=== PATIENT | male | born 1930 | race Caucasian/White ===

== ENCOUNTER 2017-02-26 11:00 | Emergency (ER) | payer MEDICARE, OTHER ==
[2017-02-26] MEDS ORDERED: SODIUM CHLORIDE 0.9% 1,000 ML IV ONE (12:24)
[2017-02-26] MEDS ORDERED: SODIUM CHLORIDE 0.9% 500 ML IV ONE (12:24)
--- NOTE | 2017-02-26 12:25 | ED Physician Documentation ---
History of Present Illness - Stated complaint Stated Complaint: VOMITING,HICCUPS - Chief complaint Chief Complaint: Abd Pain - History obtained from History obtained from: Patient - History of Present Illness Timing: Last night Pain level max: 0 Pain level now: 0 Improved by: nothing Worsened by: nothing - Additonal information Additional information: 86 yo M with vomiting last night at 10pm. Then developed hiccoughs. States non- bloody emesis. Ate a hamburger at 1930. Hasn't taken anything for this today. No fevers. Denies abd pain, diarrhea, chest pain, dyspnea. Review of Systems Ten Systems: 10 systems reviewed and negative Constitutional: denies: Fever, Chills Nose: denies: Rhinorrhea / runny nose, Congestion Throat: denies: Sore throat Cardiac: denies: Chest pain / pressure Respiratory: denies: Cough GI: reports: Vomiting. 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) - Present Medications Home Medications: Ambulatory Orders Medication Instructions Recorded Confirmed chlorproMAZINE [Thorazine] 25 mg PO TID PRN #7 tablet 02/26/17 - Allergies Allergies/Adverse Reactions: Allergies Allergy/AdvReac Type Severity Reaction Status Date / Time No Known Drug Allergies Allergy Verified 02/26/17 11:07 - Living Situation Living Situation: reports: With family Living Arrangement: reports: At home - Social History Does the pt smoke?: No Smoking Status: Unknown if ever smoked - Family History Family history: reports: Non contributory PD ED PE NORMAL - Vitals Vital signs reviewed: Yes - General General: Alert and oriented X 3, No acute distress, Well developed/nourished - HEENT HEENT: Moist mucous membranes - Neck Neck: Supple, no meningeal sign - Cardiac Cardiac: RRR, Strong equal pulses - Respiratory Respiratory: No respiratory distress, Clear bilaterally - Abdomen Abdomen: Soft, Non tender - Derm Derm: Warm and dry - Extremities Extremities: No edema, No calf tenderness / cord - Neuro Neuro: Alert and oriented X 3 - Psych Psych: Normal mood, Normal affect Results - Vitals Vitals: Vital Signs - 24 hr 07/11/17 07/11/17 07/11/17 11:07 13:56 14:23 Temperature 36.3 C L Heart Rate 99 95 88 Respiratory 16 18 16 Rate Blood Pressure 154/87 H 172/101 H 184/88 H O2 Saturation 96 97 97 Oxygen O2 Source Room air - EKG (time done) 1255 Rate: Rate (enter#) (96) Rhythm: NSR [place]: Normal Intervals: Normal [place] QRS: Normal Ischemia: Non specific changes (borderline repol abnormality) - Labs Labs: Laboratory Tests 02/26/17 02/26/17 12:48 12:48 WBC 12.4 H RBC 5.03 Hgb 16.1 Hct 47.9 MCV 95.2 H MCH 32.0 H MCHC 33.6 RDW 13.2 Plt Count 139 MPV 8.9 Neut # 10.9 H Lymph # 0.9 L [place] # 0.6 Eos # 0.0 Baso # 0.0 Absolute Nucleated RBC 0.00 Nucleated RBCs 0.0 Sodium 137 Potassium 3.5 Chloride 96 L Carbon Dioxide 30 Anion Gap 11.0 BUN 26 H Creatinine 1.1 Estimated GFR (MDRD) 63 L Glucose 267 H Calcium 9.5 Total Bilirubin 1.0 AST 23 ALT 21 Alkaline Phosphatase 92 Total Protein 7.1 Albumin 4.4 Globulin 2.7 Albumin/Globulin Ratio 1.6 Lipase 21 L PD MEDICAL DECISION MAKING - ED course Complexity details: reviewed results, re-evaluated patient (soft, nt, nd abdomen. no pain.), considered differential, d/w patient ED course: Patient with vomiting last night that has now progressed to hiccoughs today. No acute lab findings. Tolerating PO without difficulty here. Still has hiccoughs, but no evidence of obstruction, impacted food bolus, etc. Has used thorazine in the past for the hiccoughs with good result. will trial on this at home and follow up with PCP. Patient counseled regarding signs and symptoms for which I believe and urgent re-evaluation would be necessary. Patient with good understanding of and agreement to plan and is comfortable going home at this time This document was made in part using voice recognition software. While efforts are made to proofread this document, sound alike and grammatical errors may occur. Departure - Departure Disposition: 01 Home, Self Care Clinical Impression: Hiccoughs Condition: Good Instructions: ED Hiccups Follow-Up: your,doctor in 3 days. [Other] Prescriptions: chlorproMAZINE [Thorazine] 25 mg PO TID PRN #7 tablet PRN Reason: Hiccups Comments: Return if you worsen. This should improve over the next day or two. Your blood pressure was elevated today on check in to the emergency department. This does not mean that you have hypertension, it is a common phenomenon to check into the emergency department and have elevated blood pressure. I recommend that you see your primary care physician within the week to have it rechecked when you're feeling better. Discharge Date/Time: 02/26/17 14:23
[2017-02-26] MEDS ORDERED: LIDOCAINE VISCOUS 2% 15 ML UDC MM STA (12:35)
[2017-02-26] MEDS ORDERED: MAG HYDROX/AL HYDROX/SIMETH 30 ML UDC PO STA (12:35)
[2017-02-26] MEDS ORDERED: ONDANSETRON 4 MG/2 ML VIAL IVP STA (12:35)
[2017-02-26 12:57] LABS: BASOPHILS % (AUTO) 0.4 %; EOSINOPHILS % (AUTO) 0.1 %; HCT - HEMATOCRIT 47.9 % (42.0-52.0); HGB - HEMOGLOBIN 16.1 g/dL (14.0-18.0); LYMPHOCYTES # (AUTO) 0.9 10^3/uL (1.5-3.5); LYMPHOCYTES % (AUTO) 7.6 %; MEAN CORPUSCULAR HGB CONC 33.6 g/dL (32.0-36.0); MEAN CORPUSCULAR VOLUME 95.2 fL (80.0-94.0); MEAN PLATELET VOLUME 8.9 fL (7.4-11.4); MONOCYTES # (AUTO) 0.6 10^3/uL (0.0-1.0); MONOCYTES % (AUTO) 4.5 %; NEUTROPHILS # (AUTO) 10.9 10^3/uL (1.5-6.6); NEUTROPHILS % (AUTO) 87.4 %; RED BLOOD COUNT 5.03 10^6/uL (4.70-6.10); RED CELL DISTRIBUTION WIDTH 13.2 % (12.0-15.0); UNCORRECTED WHITE BLOOD COUNT 12.4 x10^3/uL; WHITE BLOOD COUNT 12.4 x10^3/uL (4.8-10.8)
[2017-02-26 13:11] LABS: CALCIUM 9.5 mg/dL (8.5-10.3); POTASSIUM 3.5 mmol/L (3.5-5.0)
[2017-02-26 13:23] LABS: ALBUMIN/GLOBULIN RATIO 1.6 (1.0-2.2); CREATININE 1.1 mg/dL (0.6-1.2); TOTAL PROTEIN 7.1 g/dL (6.7-8.2)
[2017-02-26] MEDS ORDERED: ONDANSETRON 4 MG/2 ML VIAL ONE (13:23)
[2017-02-26] MEDS ORDERED: LIDOCAINE VISCOUS 2% 15 ML UDC MM ONE (13:24)
[2017-02-26] MEDS ORDERED: MAG HYDROX/AL HYDROX/SIMETH 30 ML UDC ONE (13:24)
[2017-02-26 14:24] VITALS: BP 184/88
== END 2017-02-26 14:23 | disposition home or self-care (01) ==
LOC: ED 11:00
DX: R06.6 Hiccough (principal); I10 Essential (primary) hypertension; K21.9 Gastro-esophageal reflux disease without esophagitis
CPT/HCPCS: 36415; 80053; 83690; 85025; 93005; 96374; 99283; A9270

== ENCOUNTER 2017-06-11 09:00 | Outpatient (CLI) | payer MEDICARE, OTHER ==
[2017-06-11 17:56] LABS: BASOPHILS % (AUTO) 0.7 %; EOSINOPHILS # (AUTO) 0.2 10^3/uL (0.0-0.7); EOSINOPHILS % (AUTO) 2.3 %; HCT - HEMATOCRIT 45.5 % (42.0-52.0); HGB - HEMOGLOBIN 15.2 g/dL (14.0-18.0); LYMPHOCYTES # (AUTO) 2.1 10^3/uL (1.5-3.5); LYMPHOCYTES % (AUTO) 31.8 %; MEAN CORPUSCULAR HEMOGLOBIN 31.6 pg (27.0-31.0); MEAN CORPUSCULAR HGB CONC 33.4 g/dL (32.0-36.0); MEAN CORPUSCULAR VOLUME 94.8 fL (80.0-94.0); MEAN PLATELET VOLUME 9.8 fL (7.4-11.4); MONOCYTES # (AUTO) 0.7 10^3/uL (0.0-1.0); MONOCYTES % (AUTO) 9.6 %; NEUTROPHILS # (AUTO) 3.8 10^3/uL (1.5-6.6); NEUTROPHILS % (AUTO) 55.6 %; NUCLEATED RED BLOOD CELLS AUTO 0.1 /100WBC; RED CELL DISTRIBUTION WIDTH 13.6 % (12.0-15.0); UNCORRECTED WHITE BLOOD COUNT 6.8 x10^3/uL; WHITE BLOOD COUNT 6.8 x10^3/uL (4.8-10.8)
[2017-06-11 18:44] LABS: ALBUMIN/GLOBULIN RATIO 1.8 (1.0-2.2); BILIRUBIN,TOTAL 0.9 mg/dL (0.2-1.0); CALCIUM 8.8 mg/dL (8.5-10.3); POTASSIUM 3.8 mmol/L (3.5-5.0); TOTAL PROTEIN 5.8 g/dL (6.7-8.2)
[2017-06-11 20:02] LABS: HEMOGLOBIN A1C 0.94 g/dL
== END 2017-06-11 09:01 | disposition home or self-care (01) ==
LOC: LAB.F 09:00
DX: E11.9 Type 2 diabetes mellitus without complications (principal); D50.9 Iron deficiency anemia, unspecified
CPT/HCPCS: 36415; 80053; 83036; 85025

== ENCOUNTER 2018-03-15 13:17 | Inpatient (IN) | payer MEDICARE, OTHER ==
[2018-03-15] MEDS ORDERED: ONDANSETRON 4 MG/2 ML VIAL IVP STA (14:27)
--- NOTE | 2018-03-15 14:35 | ED Physician Documentation ---
PD HPI ABD PAIN - Stated complaint Stated Complaint: VOMITING - Chief complaint Chief Complaint: Abd Pain - History obtained from History obtained from: Patient, Family (son) - History of Present Illness Timing - onset: Yesterday (87-year-old gentleman with history of hernia repair who had a bowel obstruction was treated conservatively last year presents with abdominal cramping and nausea with hiccups since yesterday. This is reminiscent prior symptoms of bowel obstruction.) Review of Systems Ten Systems: 10 systems reviewed and negative Constitutional: denies: Fever, Chills GI: reports: Abdominal Pain, Abdominal Swelling, Nausea, Vomiting. 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) - Present Medications Home Medications: Ambulatory Orders Medication Instructions Recorded Confirmed Aspirin 325 mg 03/15/18 Latanoprost 0.005% Ophth Drops 03/15/18 [Xalatan Ophth Drops] Losartan/Hydrochlorothiazide 1 tab 03/15/18 [Losartan-Hctz 100-12.5 mg Tab] Ofloxacin 0.3% Ophth Drops 03/15/18 [Ocuflox 0.3% Ophth Drops] Omeprazole 20 mg 03/15/18 Primidone 50 mg 03/15/18 Simvastatin 20 mg 03/15/18 Terazosin [Hytrin] 2 mg 03/15/18 Zolpidem [Ambien] 5 mg 03/15/18 chlorproMAZINE [Thorazine] 25 mg PO TID PRN #12 tablet 03/15/18 - Allergies Allergies/Adverse Reactions: Allergies Allergy/AdvReac Type Severity Reaction Status Date / Time No Known Drug Allergies Allergy Verified 02/26/17 11:07 - Social History Does the pt smoke?: No Smoking Status: Unknown if ever smoked - Family History Family history: reports: Non contributory PD ED PE NORMAL - Vitals Vital signs reviewed: Yes - General General: Alert and oriented X 3, No acute distress - HEENT HEENT: PERRL, EOMI - Neck Neck: Supple, no meningeal sign, No bony TTP - Cardiac Cardiac: RRR, No murmur - Respiratory Respiratory: Clear bilaterally - Abdomen Abdomen: Soft, Non tender, Other (absent bowel tones) - Extremities Extremities: No edema, No calf tenderness / cord - Neuro Neuro: Alert and oriented X 3, Normal speech - Psych Psych: Normal mood, Normal affect Results - Vitals Vitals: Vital Signs - 24 hr 03/15/18 03/15/18 03/15/18 13:34 15:42 16:37 Temperature 36.7 C 36.3 C L Heart Rate 86 83 86 Respiratory 18 18 18 Rate Blood Pressure 198/108 H 193/101 H 196/90 H O2 Saturation 96 95 94 03/15/18 03/15/18 17:45 19:41 Temperature 36.5 C Heart Rate 89 85 Respiratory 18 18 Rate Blood Pressure 206/90 H 186/90 H O2 Saturation 95 92 Oxygen O2 Source Nasal cannula - Labs Labs: Laboratory Tests 03/15/18 03/15/18 14:30 14:30 WBC 11.9 H RBC 4.83 Hgb 16.0 Hct 48.5 MCV 100.4 H MCH 33.1 H MCHC 32.9 RDW 13.3 Plt Count 139 MPV 9.5 Neut # (Auto) 10.1 H Lymph # (Auto) 1.0 L [place] # (Auto) 0.7 Eos # (Auto) 0.0 Baso # (Auto) 0.0 Absolute Nucleated RBC 0.00 Nucleated RBC % 0.0 Sodium 137 Potassium 3.3 L Chloride 96 L Carbon Dioxide 31 Anion Gap 10.0 BUN 24 H Creatinine 1.0 Estimated GFR (MDRD) 71 L Glucose 240 H Calcium 9.3 Total Bilirubin 1.3 H AST 25 ALT 22 Alkaline Phosphatase 90 Total Protein 7.0 Albumin 4.1 Globulin 2.9 Albumin/Globulin Ratio 1.4 Lipase 25 - Rads (name of study) Acute abd series Radiology: EMP read contemporaneously (no SBO) PD MEDICAL DECISION MAKING - ED course ED course: 87-year-old gentleman with history of conservatively treated bowel obstruction presents with symptoms reminiscent of prior bowel obstruction. He is nontender. He was treated stepwise with medications for nausea and his hiccups here with good effect. The CT scanner went down so we switched to doing an acute abdominal series which was without evidence of a bowel obstruction and then he passed an oral challenge. He remained nontender on reevaluation. Given the circumstances it seems reasonable to send him home on a liquid diet and to advance over the next few days and return if worsening. However just prior to discharge he started vomiting again, the CT scanner came back up but he would not tolerate oral contrast was ordered with IV only. This demonstrated a small bowel obstruction with transition point at the duodenal jejunal border and potential malrotation. Spoke with Dr. Peter Montelongo, the on -call surgeon who recommended NG tube decompression and then repeating the CAT scan with NG tube contrast prior to admission, however he defers to medicine for admission. And I spoke with Dr. Munson for admission shortly after that. - Sepsis Event Vital Signs: Vital Signs - 24 hr 03/15/18 03/15/18 03/15/18 13:34 15:42 16:37 Temperature 36.7 C 36.3 C L Heart Rate 86 83 86 Respiratory 18 18 18 Rate Blood Pressure 198/108 H 193/101 H 196/90 H O2 Saturation 96 95 94 03/15/18 03/15/18 17:45 19:41 Temperature 36.5 C Heart Rate 89 85 Respiratory 18 18 Rate Blood Pressure 206/90 H 186/90 H O2 Saturation 95 92 Oxygen O2 Source Nasal cannula Departure - Departure Disposition: [facility] DC/Xfer Clinical Impression: Hiccoughs, Small bowel obstruction Condition: Stable Record reviewed to determine appropriate education?: Yes
[2018-03-15 14:37] LABS: BASOPHILS % (AUTO) 0.4 %; LYMPHOCYTES % (AUTO) 8.6 %; MEAN CORPUSCULAR HEMOGLOBIN 33.1 pg (27.0-31.0); MEAN CORPUSCULAR HGB CONC 32.9 g/dL (32.0-36.0); MEAN CORPUSCULAR VOLUME 100.4 fL (80.0-94.0); MEAN PLATELET VOLUME 9.5 fL (7.4-11.4); MONOCYTES # (AUTO) 0.7 10^3/uL (0.0-1.0); MONOCYTES % (AUTO) 6.1 %; NEUTROPHILS # (AUTO) 10.1 10^3/uL (1.5-6.6); NEUTROPHILS % (AUTO) 84.9 %; PLT - PLATELET COUNT 139 10^3/uL (130-450); RED BLOOD COUNT 4.83 10^6/uL (4.70-6.10); RED CELL DISTRIBUTION WIDTH 13.3 % (12.0-15.0); WHITE BLOOD COUNT 11.9 x10^3/uL (4.8-10.8)
[2018-03-15 14:50] LABS: ALBUMIN 4.1 g/dL (3.2-5.5); ALBUMIN/GLOBULIN RATIO 1.4 (1.0-2.2); BILIRUBIN,TOTAL 1.3 mg/dL (0.2-1.0); CALCIUM 9.3 mg/dL (8.5-10.3)
[2018-03-15] MEDS ORDERED: METOCLOPRAMIDE 10 MG/2 ML VIAL IVP STA (15:33)
[2018-03-15] MEDS ORDERED: chlorproMAZINE 25 MG/ML AMP IM ONE ×2 (15:57→17:43)
--- NOTE | 2018-03-15 17:25 | XRAY Report ---
Procedure Date: 03/15/2018 Accession Number: [id number] / [id number] Procedure: XR - Abdomen Acute CPT Code: FULL RESULT: EXAM: ABDOMINAL SERIES AND PA CHEST EXAM DATE: 03/15/2018 04:59 PM. CLINICAL HISTORY: Abdomen pain since yesterday with nausea. History of bowel obstruction. COMPARISON: None. TECHNIQUE: 2 views abdomen and 1 view chest. FINDINGS: CHEST: Lungs/Pleura: No focal opacities. No effusion or pneumothorax. Mediastinum: Normal heart size. Moderate hiatal hernia. ABDOMEN: Bowel Gas Pattern: Within normal limits. No dilated loops or abnormal fluid levels. Free Air: None. Other: Left soft tissue fullness. Mild scoliosis and multilevel degenerative lumbar disk disease. IMPRESSION: Left abdominal soft tissue fullness suggesting abdominal situs or soft tissue mass. No bowel obstruction or free air. RADIA
[2018-03-15] MEDS ORDERED: IOPAMIDOL-300 100 ML VIAL ONE (18:25)
[2018-03-15] MEDS ORDERED: IOPAMIDOL-300 100 ML VIAL IVP ONE (18:41)
--- NOTE | 2018-03-15 19:18 | CT Report ---
Procedure Date: 03/15/2018 Accession Number: [id number] / [id number] Procedure: CT - Abdomen/Pelvis W/ CPT Code: FULL RESULT: EXAM: CT ABDOMEN AND PELVIS EXAM DATE: 03/15/2018 06:40 PM. CLINICAL HISTORY: IV only, vomiting, cannot jimena po. History of bowel obstruction. Constipation and vomiting. COMPARISONS: None. TECHNIQUE: Routine helical CT imaging was performed through the abdomen and pelvis. IV contrast: ISOVUE 300 100mL. Enteric contrast: No. Reconstructions: Coronal and sagittal. In accordance with CT protocol optimization, one or more of the following dose reduction techniques were utilized for this exam: automated exposure control, adjustment of mA and/or KV based on patient size, or use of iterative reconstructive technique. FINDINGS: Motion artifact limits evaluation of lung bases and upper abdomen. Lung Bases: Mild basilar atelectasis. Mild cardiac enlargement. Coronary artery calcifications. Moderate-sized hiatal hernia, containing fluid. Liver: Grossly normal (motion artifact). Gallbladder/Bile Ducts: Gallstones without clover acute abnormality or evidence of ductal dilatation. Spleen: Normal. Pancreas: Normal. Adrenal Glands: Normal. Kidneys: Findings consistent with multiple bilateral renal cysts although some are too small to definitively characterize. Largest on the right is 2.7 cm and on the left 6.8 cm. Nonobstructing 5 mm left lower pole calculus. No hydronephrosis, hydroureter or perinephric stranding. Peritoneal Cavity/Bowel: No free fluid, free air or clover adenopathy. Severe colonic diverticulosis without clover diverticulitis. The appendix is well visualized and normal. Dilated stomach and duodenum, primarily with fluid. The duodenum does extend to the midline but then there is some looping or twisting and the duodenal/jejunal junction and the jejunum projects to the right with associated swirling of some vessels consistent with malrotation. Small bowel is decompressed beyond that level. This consistent with obstruction, apparently from malrotation. No clover pneumatosis intestinalis. Pelvic Organs: Dilated bladder. No clover wall thickening, mass or stone. Prostate appears very small Vasculature: Moderate calcification and tortuous aorta, without aneurysm. Bones: Lumbar scoliosis and extensive degenerative disease. No definite acute abnormality. Other: Cutaneous/subcutaneous 1.1 x 2.3 cm soft tissue nodule to the right of the midline of the lower pelvic wall, below the level of the pubic symphysis. IMPRESSION: 1. GI track obstruction near the level of the duodenum-jejunum junction with associated small bowel malrotation, as discussed above. Substantial fluid dilatation of the stomach and duodenum with some fluid distention of a hiatal hernia. Decompression with nasogastric tube recommended. 2. Mild cardiac enlargement. 3. Dilated bladder. 4. Cutaneous/subcutaneous nodule within the lower anterior pelvic wall. Clinical correlation recommended. 5. Cholelithiasis. 6. Additional chronic findings, as above. RADIA The above findings were discussed with Toribio Haro by Dr. Zachary Carreno at 19:15 hrs on 03/15/18.
[2018-03-15] MEDS ORDERED: IOPAMIDOL-300 50 ML VIAL ONE (19:39)
[2018-03-15] MEDS ORDERED: PROMETHAZINE 25 MG/1 ML VIAL IM PRN (19:59)
[2018-03-15] MEDS ORDERED: MORPHINE 2 MG/ML SYRINGE IVP PRN (19:59)
[2018-03-15] MEDS ORDERED: PROCHLORPERAZINE 10 MG/2 ML VIAL IVP PRN (19:59)
[2018-03-15] MEDS ORDERED: ONDANSETRON 4 MG/2 ML VIAL IVP PRN (19:59)
--- NOTE | 2018-03-15 20:08 | HISTORY & PHYSICAL EXAMINATION ---
Chief Complaint - Chief Complaint Chief Complaint: Nausea and vomiting History of Present Illness - Admitted From Admitted From:: Emergency Department - History Obtained From Records Reviewed: Yes History obtained from: Patient Exam Limitations: None - History of Present Illness HPI Comment/Other: Patient is a very pleasant 87-year-old gentleman with a past medical history significant for hypertension, hyperlipidemia, GERD, BPH, borderline diabetes, macular degeneration of the right eye, history of hernia repair in 1973 and history of small bowel obstruction 1 year ago for which patient required 3-4 day hospitalization in [place] who presents to the emergency department with a chief complaint of nausea and vomiting. The patient states that he was in his normal state of health until yesterday afternoon when he states he felt unwell. He states he felt as though he had eaten too much and began having bloating and abdominal distention. The patient states he did not feel nauseated at that time nor was he having abdominal pain but he was not comfortable throughout the day. The patient states that the same symptoms continued this morning and then around 5 PM he became very nauseated and had multiple episodes of emesis. The patient states after that he began having hiccups and he could not control his hiccups. The symptoms were very similar to what he had about a year ago when he was hospitalized with a bowel obstruction. The patient states that his son was visiting from [place] and convinced the patient that he needs to come to the emergency department. The patient denies any abdominal pain, fevers, chills or diarrhea. The patient states that his last bowel movement was more than a day ago. Patient denies any headaches, blurred vision, runny nose, sore throat, nasal congestion, difficulty swallowing, chest pain, shortness of air, orthopnea, PND , increased lower extremity swelling, cough, urinary urgency, urinary frequency , dysuria, joint pain, muscle aches, joint swelling, back pain, neck stiffness, recent unintentional weight loss, hair loss, skin rash, night sweats or any focal neurologic deficits. On presentation to the emergency department the patient was afebrile with heart rate of 86. The patient was very hypertensive with a blood pressure of 198/108 and was otherwise not in any respiratory distress. The patient was having continuous hiccups in the emergency department. The patient underwent routine lab tests which showed a mild leukocytosis of 11.9 and a mild hypokalemia of 3.3 with hypochloremia. The patient also was found to have a blood glucose level of 240. The patient does admit that he has borderline diabetes. The patient initially underwent an acute abdominal series and x-ray showed left abdominal soft tissue fullness suggesting abdominal situs or soft tissue mass. No bowel obstruction or free air was seen. The emergency room physician gave the patient a p.o. challenge which initially he appeared to have passed and was ready to discharge the patient however prior to discharge the patient again began having nausea and had several episodes of emesis. At this point the emergency room physician ordered a CT abdomen/pelvis with IV contrast which revealed a GI tract obstruction near the level of the duodenumjejunum junction with associated small bowel malrotation. The patient had an NG tube placed at that time which was able to suction a large amount of contents from the patient' s stomach. The emergency room physician spoke with the surgeon toy consultant Dr. Quintin Montelongo who asked for a CT abdomen/pelvis with oral contrast placed down the NG tube. The repeat CT scan showed high-grade obstruction near the jejunumduodenum junction with concern for possible volvulus. The surgeon asked that the patient be admitted by the hospitalist service and that he would consult on the patient in the morning. He commented that the patient would likely need laparoscopic procedure in the morning. History - Past Medical History Cardiovascular: reports: Hypertension, High cholesterol Endocrine/Autoimmune: reports: Other (Borderline diabetes) GI: reports: GERD, Hiatal hernia, Other (History of small bowel obstruction) : reports: Benign prostate hypertrophy HEENT: reports: Glaucoma - Past Surgical History General: reports: Hiatal hernia repair /[employer]: reports: Other (prostate) - Family & Social History Family History: Mother: , CVA/TIA, Father: , CAD, ID Living arrangement: At home Living Situation: With spouse/s.o. Social History Notes: Mother in her 80s of stroke and father in his 80s of ID. The patient lives with his and spends most of the year in [place], [place]. 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 They tend to spend most of their alvarez here on [facility]. The patient has 2 sons one who lives in [place] and one that lives in [place]. 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 He is a former smoker and quit smoking 35 years ago. Prior to this he smoked 1 pack per day for 20 years. He does drink a glass of wine every night and denies any illicit drug use. - POLST Patient has POLST: No POLST Status: Full Code Meds/Allgy - Home Medications Home Medications: Ambulatory Orders Medication Instructions Recorded Confirmed Aspirin 325 mg 03/15/18 Latanoprost 0.005% Ophth Drops 03/15/18 [Xalatan Ophth Drops] Losartan/Hydrochlorothiazide 1 tab 03/15/18 [Losartan-Hctz 100-12.5 mg Tab] Ofloxacin 0.3% Ophth Drops 03/15/18 [Ocuflox 0.3% Ophth Drops] Omeprazole 20 mg 03/15/18 Primidone 50 mg 03/15/18 Simvastatin 20 mg 03/15/18 Terazosin [Hytrin] 2 mg 03/15/18 Zolpidem [Ambien] 5 mg 03/15/18 chlorproMAZINE [Thorazine] 25 mg PO TID PRN #12 tablet 03/15/18 - Allergies Allergies/Adverse Reactions: Allergies Allergy/AdvReac Type Severity Reaction Status Date / Time No Known Drug Allergies Allergy Verified 02/26/17 11:07 Review of Systems - Other Findings Other Findings: A comprehensive review of systems was performed the pertinent positives and negatives are stated above in the HPI and the remainder of the review of systems is negative. Exam - Vital Signs Reviewed Vital Signs: Yes Vital Signs: Vital Signs x48h Temp Pulse Resp BP Pulse Ox 03/15/18 19:41 85 18 186/90 H 92 03/15/18 17:45 36.5 C 89 18 206/90 H 95 03/15/18 16:37 86 18 196/90 H 94 03/15/18 15:42 36.3 C L 83 18 193/101 H 95 03/15/18 13:34 36.7 C 86 18 198/108 H 96 - Physical Exam General Appearance: positive: Alert, Moderate distress (Patient continues to have hiccups and nausea, he feels unwell and keeps his eyes closed for much of our encounter) Eyes Bilateral: positive: Normal inspection, PERRL, EOMI, No lid inflammation, Conjunctivae nml, No scleral icterus ENT: positive: ENT inspection nml, Pharynx nml, Dry mucous membranes. negative : Purulent nasal drainage, Pharyngeal erythema, Oral lesions Neck: positive: Nml inspection, Thyroid nml, No JVD, Trachea midline. negative : Thyromegaly, Lymphadenopathy (R), Lymphadenopathy (L), Stiff neck, Carotid bruit, Tracheal deviation Respiratory: positive: Chest non-tender, No respiratory distress, Breath sounds nml. negative: Wheezes, Rales, Rhonchi Cardiovascular: positive: Regular rate & rhythm, No murmur, No gallop Peripheral Pulses: positive: 2+ Abdomen: positive: No organomegaly, Nml bowel sounds, Tenderness (Mild tenderness in the epigastric and upper abdominal area), Abnml bowel sounds ( Bowel sounds are absent), Other (There is some mild distention in the upper abdomen). negative: Guarding, Rebound, Hepatomegaly Back: positive: Nml inspection Skin: positive: Color nml, No rash, Warm, Dry. negative: Cyanosis, Diaphoresis , Pallor, Skin rash Extremities: positive: Non-tender, Full ROM, Nml appearance, No pedal edema Neurologic/Psychiatric: positive: Oriented x3, CN's nml (2-12), Motor nml, Sensation nml, Mood/affect nml Conclusion/Plan - Problem List (1) Small bowel obstruction Conclusion/Plan: Patient presented to the emergency department with nausea and vomiting as well as hiccups. The patient was found to have a small bowel obstruction near the jejunumduodenum junction. The obstruction appears to be high-grade on CT with possibility of a volvulus. Surgery has been consulted. Plan: N.p.o. IV fluids NG tube to suction IV antiemetics as needed IV morphine as needed Surgery consult patient will likely need surgical intervention in the morning (2) Hypokalemia Conclusion/Plan: Patient presents with hypokalemia likely secondary to nausea and vomiting. The patient's potassium is 3.3 on presentation. The patient does appear to be significantly dry due to volume loss. The patient will be given IV potassium overnight and we will monitor potassium daily. (3) Hypertension Conclusion/Plan: The patient has a history of hypertension and blood pressure was significantly elevated in the emergency department with blood pressures ranging from 190-200 systolic. The patient is likely more hypertensive than normal secondary to being unable to take his home medication due to nausea and vomiting and also due to the distress of his current condition. Plan: Patient is n.p.o. therefore he will not be able to use his home medication We will place the patient on IV Vasotec every 6 hours and monitor blood pressure will titrate medication as needed. Qualifiers: Hypertension type: essential hypertension Qualified Code(s): I10 - Essential (primary) hypertension (4) Hyperglycemia Conclusion/Plan: The patient admits that he has a history of borderline diabetes but is not on any treatment at this time. The patient's blood sugar was significantly elevated on presentation at 240. Given how high his blood glucose was on presentation we will place the patient on n.p.o. sliding scale insulin. The patient will also be placed on D5 normal saline with 20 of K for IV fluid. We will check a hemoglobin A1c in the morning. We will monitor blood glucose 4 times daily (5) GERD (gastroesophageal reflux disease) Conclusion/Plan: The patient has history of GERD and is on omeprazole at home. While the patient is hospitalized he will be placed on IV famotidine. (6) Hyperlipemia Conclusion/Plan: Patient has a history of hyperlipidemia and does take statin at home. Patient will resume statin once he is able to take oral medication for now it will be held as he is n.p.o. Qualifiers: Hyperlipidemia type: unspecified Qualified Code(s): E78.5 - Hyperlipidemia , unspecified - Lab Results Lab results reviewed: Yes Fish Bones: 03/15/18 14:30 03/15/18 14:30 Other Lab Results: Laboratory Results WBC 11.9 x10^3/uL (4.8-10.8) H 03/15/18 14:30 RBC 4.83 10^6/uL (4.70-6.10) 03/15/18 14:30 Hgb 16.0 g/dL (14.0-18.0) 03/15/18 14:30 Hct 48.5 % (42.0-52.0) 03/15/18 14:30 MCV 100.4 fL (80.0-94.0) H 03/15/18 14:30 MCH 33.1 pg (27.0-31.0) H 03/15/18 14:30 MCHC 32.9 g/dL (32.0-36.0) 03/15/18 14:30 RDW 13.3 % (12.0-15.0) 03/15/18 14:30 Plt Count 139 10^3/uL (130-450) 03/15/18 14:30 MPV 9.5 fL (7.4-11.4) 03/15/18 14:30 Neut # (Auto) 10.1 10^3/uL (1.5-6.6) H 03/15/18 14:30 Lymph # (Auto) 1.0 10^3/uL (1.5-3.5) L 03/15/18 14:30 [place] # (Auto) 0.7 10^3/uL (0.0-1.0) 03/15/18 14:30 Eos # (Auto) 0.0 10^3/uL (0.0-0.7) 03/15/18 14:30 Baso # (Auto) 0.0 10^3/uL (0.0-0.1) 03/15/18 14:30 Absolute Nucleated RBC 0.00 x10^3/uL 03/15/18 14:30 Nucleated RBC % 0.0 /100WBC 03/15/18 14:30 Sodium 137 mmol/L (135-145) 03/15/18 14:30 Potassium 3.3 mmol/L (3.5-5.0) L 03/15/18 14:30 Chloride 96 mmol/L (101-111) L 03/15/18 14:30 Carbon Dioxide 31 mmol/L (21-32) 03/15/18 14:30 Anion Gap 10.0 (6-13) 03/15/18 14:30 BUN 24 mg/dL (6-20) H 03/15/18 14:30 Creatinine 1.0 mg/dL (0.6-1.2) 03/15/18 14:30 Estimated GFR (MDRD) 71 (>89) L 03/15/18 14:30 Glucose 240 mg/dL (70-100) H 03/15/18 14:30 Calcium 9.3 mg/dL (8.5-10.3) 03/15/18 14:30 Total Bilirubin 1.3 mg/dL (0.2-1.0) H 03/15/18 14:30 AST 25 IU/L (10-42) 03/15/18 14:30 ALT 22 IU/L (10-60) 03/15/18 14:30 Alkaline Phosphatase 90 IU/L (42-121) 03/15/18 14:30 Total Protein 7.0 g/dL (6.7-8.2) 03/15/18 14:30 Albumin 4.1 g/dL (3.2-5.5) 03/15/18 14:30 Globulin 2.9 g/dL (2.1-4.2) 03/15/18 14:30 Albumin/Globulin Ratio 1.4 (1.0-2.2) 03/15/18 14:30 Lipase 25 U/L (22-51) 03/15/18 14:30 - Diagnostic Imaging Results Diagnostic Imaging Results: positive: Final report reviewed Diagnostic Imaging Results Comments: Acute abdominal series Impression: Left abdominal soft tissue fullness suggesting abdominal situs or soft tissue mass. No bowel obstruction or free air CT abdomen/pelvis Impression: 1. GI tract obstruction near the level of the duodenumjejunum junction with associated small bowel malrotation, as discussed above. Substantial fluid dilatation of the stomach and duodenum with some fluid distention of a hiatal hernia. Decompression with nasogastric tube recommended. 2. Mild cardiac enlargement. 3. Dilated bladder. 4. Cutaneous/subcutaneous nodule within the lower anterior pelvic wall. Clinical correlation recommended. 5. Cholelithiasis 6. Additional chronic findings CT abdomen/pelvis with oral contrast Impression: 1. High-grade obstruction near the jejunumduodenal junction. Differential includes an internal hernia or adhesions. Swirling of the vessels raises possibility of a volvulus possibly secondary to malrotation. 2. Diverticulosis. No acute inflammation. No obstruction of the large bowel. 3. Cholelithiasis. Core Measures - Anticipated LOS I expect patient to be DC'd or transferred within 96 hours.: Yes - DVT/VTE - Prophylaxis VTE/DVT Prophylaxis med ordered at admit?: Yes
[2018-03-15] MEDS ORDERED: IOPAMIDOL-300 50 ML VIAL PO ONE (21:00)
[2018-03-15] MEDS: D5NS W/20 MEQ KCL 1,000 ML IV SCH (22:20)
[2018-03-15] MEDS: FAMOTIDINE 20 MG/50 ML 50 ML IV SCH (22:21)
--- NOTE | 2018-03-15 22:40 | CT Report ---
Procedure Date: 03/15/2018 Accession Number: [id number] / [id number] Procedure: CT - Abdomen/Pelvis W/O CPT Code: FULL RESULT: EXAM: CT ABDOMEN AND PELVIS EXAM DATE: 03/15/2018 09:46 PM. CLINICAL HISTORY: Per surgeon, rpt with NGT contrast. COMPARISONS: 03/15/2018. TECHNIQUE: Routine helical CT imaging was performed through the abdomen and pelvis. IV contrast: None. Enteric contrast: No. Reconstructions: Coronal and sagittal. In accordance with CT protocol optimization, one or more of the following dose reduction techniques were utilized for this exam: automated exposure control, adjustment of mA and/or KV based on patient size, or use of iterative reconstructive technique. FINDINGS: Lung Bases: Bibasilar opacities and trace left pleural effusion. Moderate paraesophageal hernia. Nasogastric tube is coiled in the lower esophagus. Contrast is present in the paraesophageal hernia and lower esophagus. No pleural or pericardial effusions. Coronary artery calcifications are noted. No significant cardiac enlargement.. Liver: No solid mass or intrahepatic bile duct dilation. Potential exophytic cystic structure adjacent to the posterior right liver, image 26. Gallbladder/Bile Ducts: Multiple gallstones. No gallbladder wall thickening or pericholecystic fluid or common bile duct dilation noted. Spleen: Normal. Pancreas: Normal. Adrenal Glands: Normal. Kidneys: Multiple bilateral renal cysts. Contrast is present in the nondilated renal collecting system. No solid renal mass. Peritoneal Cavity/Bowel: No ascites, pneumoperitoneum, portal venous gas, adenopathy or mass is noted. Oral contrast is noted in the markedly distended stomach and duodenum to the duodenal-jejunal junction. No contrast is seen beyond the duodenum. Persistent high-grade obstruction with swirling of the vessels is noted at the junction of the duodenum and jejunum. As before, diffuse colonic diverticula without large bowel inflammation is noted. No dilated large bowel concerning for obstruction. Pelvic Organs: Moderately distended bladder with multiple bladder diverticula. Possible TURP defect. Mild enlargement of the prostate gland. No pelvic mass or adenopathy. Vasculature: Diffuse atheromatous plaques are present in the abdominal aorta and branch vessels. No aneurysm. Normal IVC. Bones: No osteoblastic or osteolytic lesions are noted. Multilevel degenerative disk disease and facet arthropathy is noted. Other: Persistent subcutaneous nodule in the anterior midline pelvis at the level of the pubic symphysis. IMPRESSION: 1. High-grade obstruction near the jejunum-duodenal junction. Differential includes an internal hernia or adhesions. Swirling of the vessels raises possibility of a volvulus possibly secondary to malrotation. 2. Diverticulosis. No acute inflammation. No obstruction of the large bowel. 3. Cholelithiasis. RADIA
[2018-03-16] MEDS: SODIUM CHLORIDE FLUSH 0.9% 10 ML SYRINGE IVP SCH ×4 (00:36→18:55)
[2018-03-16] MEDS: ENALAPRILAT 1.25 MG/ML VIAL IVP SCH ×4 (00:50→18:55)
[2018-03-16] MEDS: INSULIN REGULAR HUMAN 100 UNIT/1 ML 10 ML MDV SUBQ SCH ×4 (00:51→18:55)
--- NOTE | 2018-03-16 03:14 | CONSULTATION NOTE ---
DATE OF SERVICE: 03/16/2018 Physician: Salvador Montelongo MD REASON FOR ADMISSION: Nausea and vomiting. HISTORY OF PRESENT ILLNESS: Patient is an 87-year-old male who presents with not feeling well, abdominal distention starting the day of admission, being 03/15/2018. He has had this happen twice in the past in which he was hospitalized and an NG tube placed with it resolving. His doctor said that this could happen again but they wanted to be conservative , which is ridiculous, as he is now needing emergency evaluation again. He has had flatus. He has had nausea and vomiting. A CT scan of the abdomen and pelvis shows a probable internal hernia being present. PAST MEDICAL HISTORY 1. Hypertension. 2. Hypercholesterolemia. 3. Gastroesophageal reflux disease. 4. Hiatal hernia. 5. BPH. 6. Glaucoma. PAST SURGICAL HISTORY: Inguinal hernia repair. MEDICATIONS 1. Xalatan ophthalmic drops. 2. Losartan/hydrochlorothiazide. 3. Omeprazole. 4. Primidone. 5. Simvastatin. 6. Terazosin. 7. Ambien. 8. Thorazine. ALLERGIES TO MEDICATIONS: NONE. HABITS: Patient denies any smoking, alcohol or drug use. SOCIAL HISTORY: The patient is . FAMILY HISTORY: Noncontributory. REVIEW OF SYSTEMS GASTROINTESTINAL: Abdominal pain, nausea and vomiting. Gastroesophageal reflux. GENITOURINARY: BPH. A 12-point review of systems was obtained, with pertinent positives discussed and all others being negative. PHYSICAL EXAMINATION GENERAL: Patient is lying in bed. He is tired but is able to answer questions. VITAL SIGNS: Temperature is 36.7, heart rate 86, respirations 18, blood pressure is 196/90. HEENT: Eyes nonicteric. NECK: No lymphadenopathy. HEART: Regular. LUNGS: Clear. ABDOMEN: Soft, nondistended, nontender. No obvious hernias. EXTREMITIES: No edema or cyanosis. NEUROLOGICAL: Patient appears to be neurologically intact without any deficits. PSYCHOLOGICAL: Patient is coherent, cooperative, and appears to answer questions fully. DIAGNOSTIC DATA CT scan of the abdomen and pelvis: See history of present illness. White blood cell count of 12, hemoglobin 16, MCV of 100. Potassium 3.3, glucose 240, total bilirubin 1.3. ASSESSMENT 1. Abdominal pain, nausea and vomiting. This is his third occurrence. CT scan shows a likely internal hernia being present. He has a nasogastric tube that is in his hiatal hernia, not in the full stomach, along with the stomach being distended. He has had bilious fluid out through his nasogastric tube. I recommend that we adjust the nasogastric tube in order to adequately decompress the stomach; once this has been completed, then performing diagnostic laparoscopy, possible laparotomy, possible bowel resection, possible repair of abdominal hernia. The risks and possible complications of the procedure have been explained to him. He accepts the risks and would like to proceed with the procedure. 2. Hypokalemia. This is being corrected. 3. Hypertension. Internal medicine is following. Patient will have his blood pressure under better control for the procedure. 4. Hiatal hernia. We will try and adjust his nasogastric tube under fluoroscopy. PLAN 1. NPO. 2. IV fluids. 3. NG tube adjustment. 4. Preoperative IV antibiotics. 5. Diagnostic laparoscopy, possible bowel resection, possible repair of internal hernia, possible laparotomy. TD: 03/16/2018 01:10 NEREIDA
[2018-03-16 05:44] LABS: BASOPHILS % (AUTO) 0.2 %; HGB - HEMOGLOBIN 15.1 g/dL (14.0-18.0); LYMPHOCYTES # (AUTO) 1.3 10^3/uL (1.5-3.5); LYMPHOCYTES % (AUTO) 9.4 %; MEAN CORPUSCULAR HEMOGLOBIN 33.4 pg (27.0-31.0); MEAN CORPUSCULAR HGB CONC 33.6 g/dL (32.0-36.0); MEAN CORPUSCULAR VOLUME 99.2 fL (80.0-94.0); MEAN PLATELET VOLUME 9.4 fL (7.4-11.4); MONOCYTES # (AUTO) 1.1 10^3/uL (0.0-1.0); MONOCYTES % (AUTO) 8.2 %; NEUTROPHILS # (AUTO) 11.1 10^3/uL (1.5-6.6); NEUTROPHILS % (AUTO) 82.2 %; PLT - PLATELET COUNT 123 10^3/uL (130-450); RED BLOOD COUNT 4.53 10^6/uL (4.70-6.10); RED CELL DISTRIBUTION WIDTH 13.4 % (12.0-15.0); WHITE BLOOD COUNT 13.5 x10^3/uL (4.8-10.8)
[2018-03-16 05:55] LABS: ALBUMIN 3.5 g/dL (3.2-5.5); ALBUMIN/GLOBULIN RATIO 1.4 (1.0-2.2); BILIRUBIN,TOTAL 1.3 mg/dL (0.2-1.0); CALCIUM 8.7 mg/dL (8.5-10.3); CREATININE 0.9 mg/dL (0.6-1.2); MAGNESIUM 1.9 mg/dL (1.7-2.8); PHOSPHORUS 2.4 mg/dL (2.5-4.6)
[2018-03-16 06:20] LABS: HEMOGLOBIN A1C 0.91 g/dL; HEMOGLOBIN A1C % 7.4 % (4.6-6.2)
[2018-03-16] MEDS ORDERED: BUPIVACAINE 0.25%-EPI 1:200000 PF 30 ML VIAL ONE (07:28)
[2018-03-16] MEDS ORDERED: cefOXitin 2 GM in SODIUM CHLORIDE 0.9% MINIBAG 100 ML IV SCH (07:30)
[2018-03-16] MEDS: FAMOTIDINE 20 MG/50 ML 50 ML IV SCH ×2 (07:48→21:06)
--- NOTE | 2018-03-16 08:07 | ANESTHESIA ---
Pre-Anesthesia VS, & Labs - Diagnosis possible bowel obstruction - Procedure Diagnostic Laparoscopy Vital Signs: Temp Pulse Resp BP Pulse Ox 36.4 C L 76 18 136/73 H 92 03/16/18 07:46 03/16/18 07:46 03/16/18 07:46 03/16/18 07:46 03/16/18 07:46 Height 6 ft Weight (kg) 95.5 kg Body Mass Index 28.5 - NPO >8 hours - Is Patient ?: No - Lab Results Lab results reviewed: Yes Fish Bones: 03/16/18 05:25 03/16/18 05:25 Home Medications and Allergies Home Medications: Ambulatory Orders Medication Instructions Recorded Confirmed Aspirin 325 mg 03/15/18 Latanoprost 0.005% Ophth Drops 03/15/18 [Xalatan Ophth Drops] Losartan/Hydrochlorothiazide 1 tab 03/15/18 [Losartan-Hctz 100-12.5 mg Tab] Ofloxacin 0.3% Ophth Drops 03/15/18 [Ocuflox 0.3% Ophth Drops] Omeprazole 20 mg 03/15/18 Primidone 50 mg 03/15/18 Simvastatin 20 mg 03/15/18 Terazosin [Hytrin] 2 mg 03/15/18 Zolpidem [Ambien] 5 mg 03/15/18 chlorproMAZINE [Thorazine] 25 mg PO TID PRN #12 tablet 03/15/18 Allergies/Adverse Reactions: Allergies Allergy/AdvReac Type Severity Reaction Status Date / Time No Known Drug Allergies Allergy Verified 02/26/17 11:07 Anes History & Medical History - Anesthetic History Anesthesia Complications: reports: No previous complications - Airway/Dental Dental: WNL Neck Mobility: Reduced Thyromental Distance: 4-6 cm - Medical History Cardiovascular: reports: Hypertension, High cholesterol Gastrointestinal: reports: GERD, Hiatal hernia, Other (History of small bowel obstruction) Urinary: reports: Benign prostate hypertrophy Endocrine/Autoimmune: reports: Other (Borderline diabetes) Smoking Status: Unknown if ever smoked - Surgical History General: Hiatal hernia repair Gynecologic: Other (prostate) Results - EKG Results EKG Comparison: Reviewed EKG Exam General: Alert, Oriented x3 Abdomen: Other (reduced, ngt in place) Mental/Cognitive Status: Alert/Oriented X3 Plan Anesthesia Type: General Consent for Operative Procedure(s) Verified and Reviewed: Yes Code Status: Attempt Resuscitation ASA classification: 2-Mild systemic disease Is this case an emergency?: Yes
[2018-03-16] MEDS: D5NS W/20 MEQ KCL 1,000 ML IV SCH ×2 (08:50→14:46)
[2018-03-16] MEDS ORDERED: LACTATED RINGERS 1,000 ML IV ONE ×2 (08:55→11:15)
[2018-03-16] MEDS ORDERED: ENOXAPARIN 40 MG/0.4 ML SYRINGE SUBQ SCH (09:00)
[2018-03-16] MEDS ORDERED: POLYETHYLENE GLYCOL 3350 17 GM PACKET PO SCH (09:00)
[2018-03-16] MEDS ORDERED: IOTHALAMATE MEGLUMINE 50 ML VIAL ONE (09:41)
[2018-03-16] MEDS ORDERED: BUPIVACAINE 0.25%-EPI 1:200000 PF 30 ML VIAL SUBQ ONE ×2 (09:48)
[2018-03-16] MEDS ORDERED: IOTHALAMATE MEGLUMINE 50 ML VIAL IVP ONE (09:48)
[2018-03-16] MEDS ORDERED: GLYCOPYRROLATE 1 MG/5 ML VIAL IVP ONE (10:00)
[2018-03-16] MEDS ORDERED: PROPOFOL 200 MG/20 ML VIAL IVP ONE (10:00)
[2018-03-16] MEDS ORDERED: ACETAMINOPHEN 1,000 MG/100 ML 100 ML IV ONE (10:00)
[2018-03-16] MEDS ORDERED: ONDANSETRON 4 MG/2 ML VIAL IVP ONE (10:00)
[2018-03-16] MEDS ORDERED: HYDROmorphone 1 MG/ML SYRINGE IVP ONE (10:00)
[2018-03-16] MEDS ORDERED: LIDOCAINE-MPF 2% 5 ML VIAL IM ONE (10:00)
[2018-03-16] MEDS ORDERED: ROCURONIUM 50 MG/5 ML VIAL IVP ONE (10:00)
[2018-03-16] MEDS ORDERED: NEOSTIGMINE 1 MG/1 ML 10 ML MDV IVP ONE (10:00)
[2018-03-16] MEDS ORDERED: fentaNYL 100 MCG/2 ML VIAL IVP ONE (10:00)
[2018-03-16] MEDS ORDERED: INSULIN REGULAR HUMAN 100 UNIT/1 ML 10 ML MDV ONE (10:44)
[2018-03-16] MEDS ORDERED: HYDROmorphone 1 MG/ML CARPUJECT IVP PRN (11:49)
[2018-03-16] MEDS ORDERED: HYDROmorphone 0.5 MG/0.5 ML SYRINGE IVP PRN (11:49)
[2018-03-16] MEDS: cefOXitin 1 GM in SODIUM CHLORIDE 0.9% MINIBAG 100 ML IV SCH ×2 (13:59→19:42)
--- NOTE | 2018-03-16 14:40 | PROVIDER PROGRESS NOTE ---
Subjective - Prog Note Date Prog Note Date: 03/16/18 Prog Note Time: 14:46 - Subjective Subjective: I have not seen him before and after surgery. Right now he is a little groggy but completely alert and appropriate. Main complaint is a dry mouth. Feels that the pain is controlled. Denies any chest pain, shortness of breath. Current Medications - Current Medications Current Medications: Active Medications Enalaprilat (Vasotec Inj) 1.25 mg IVP Q6HR [facility] Last Admin: 03/16/18 13:59 Dose: Not Given Hydromorphone HCl (Dilaudid Inj Carp) 1 mg IVP Q2H PRN PRN Reason: PAIN Hydromorphone HCl (Dilaudid Inj Syringe) 0.5 mg IVP Q2H PRN PRN Reason: PAIN Potassium Chloride/Dextrose/Sod Cl () 1,000 mls @ 100 mls/hr IV .Q10H [facility] Last Admin: 03/16/18 14:46 Dose: 100 mls/hr Famotidine (Pepcid 20 Mg/50 Ml) 50 mls @ 100 mls/hr IV BID [facility] Last Infusion: 03/16/18 08:18 Dose: Infused Cefoxitin Sodium 1 gm/ Sodium (Chloride) 100 mls @ 200 mls/hr IV Q8H [facility] Stop: 03/17/18 04:29 Last Admin: 03/16/18 13:59 Dose: Not Given Insulin Human Regular (Novolin R) 1 - 5 unit SUBQ Q6HR [facility] PRN Reason: Protocol Last Admin: 03/16/18 13:59 Dose: Not Given Morphine Sulfate (Morphine) 2 mg IVP Q2H PRN PRN Reason: Pain 8 to 10 Ondansetron HCl (Zofran Inj) 4 mg IVP Q6HR PRN PRN Reason: Nausea / Vomiting Polyethylene Glycol (Miralax) 17 gm PO DAILY [facility] Last Admin: 03/16/18 07:25 Dose: Not Given Prochlorperazine Edisylate (Compazine Inj) 10 mg IVP Q6HR PRN PRN Reason: Nausea / Vomiting Promethazine HCl (Phenergan Inj) 25 mg IM Q6HR PRN PRN Reason: Nausea / Vomiting Sodium Chloride (Normal Saline Flush 0.9%) 10 ml IVP PRN PRN PRN Reason: NEEDED PER PROVIDER ORDERS Sodium Chloride (Normal Saline Flush 0.9%) 10 ml IVP 0100,0900,1700 [facility] Last Admin: 03/16/18 07:49 Dose: Not Given Aspirin 325 mg 03/15/18 Latanoprost 0.005% Ophth Drops [Xalatan Ophth Drops] 03/15/18 Losartan/Hydrochlorothiazide [Losartan-Hctz 100-12.5 mg Tab] 1 tab 03/15/18 Ofloxacin 0.3% Ophth Drops [Ocuflox 0.3% Ophth Drops] 03/15/18 Omeprazole 20 mg 03/15/18 Primidone 50 mg 03/15/18 Simvastatin 20 mg 03/15/18 Terazosin [Hytrin] 2 mg 03/15/18 Zolpidem [Ambien] 5 mg 03/15/18 Objective - Vital Signs/Intake & Output Reviewed Vital Signs: Yes Vital Signs: Vital Signs x48h Temp Pulse Resp BP BP Pulse Ox 03/16/18 13:54 36.9 C 80 18 147/57 H 96 03/16/18 13:30 72 16 139/60 H 96 03/16/18 13:02 36.9 C 72 18 123/65 96 03/16/18 12:45 36.9 C 70 16 139/54 H 97 03/16/18 12:39 37 C 16 127/78 96 03/16/18 12:34 37 C 16 127/52 L 96 03/16/18 12:30 37 C 16 127/54 L 95 03/16/18 12:27 37 C 16 141/43 H 96 03/16/18 12:19 37 C 16 94 03/16/18 12:14 37 C 16 129/50 L 95 03/16/18 12:11 36.8 C 16 123/52 L 96 03/16/18 12:05 36.9 C 16 98 03/16/18 11:58 36.9 C 16 140/57 H 97 03/16/18 11:53 36.9 C 16 140/61 H 97 03/16/18 07:46 36.4 C L 76 18 136/73 H 92 03/16/18 07:15 79 151/77 H 03/16/18 07:00 76 128/72 03/16/18 06:45 87 132/69 H 03/16/18 06:41 87 120/99 H Intake & Output: Intake & Output 03/13/18 03/14/18 03/15/18 03/16/18 23:59 23:59 23:59 23:59 Intake Total 61.667 1066.333 Output Total 1300 2400 Balance -1238.333 -1333.667 - Objective General Appearance: positive: No acute distress, Alert, Other (Hand, tall, elderly man who looks stated age, sleepy) Eyes Bilateral: positive: PERRL, EOMI ENT: positive: Dry mucous membranes Neck: positive: No JVD. negative: Stiff neck, Carotid bruit Respiratory: positive: Chest non-tender, Other (Breath sounds diminished at bases and right now he is breathing shallowly). negative: Wheezes, Rales, Rhonchi Cardiovascular: positive: Regular rate & rhythm. negative: Gallop/S4, Friction rub Abdomen: positive: Other (No bowel sounds, nondistended, tender only at incision sites) Skin: positive: Warm, Dry Extremities: positive: Non-tender, No pedal edema Neurologic/Psychiatric: positive: Oriented x3, CN's nml (2-12), Motor nml - Lab Results Fish Bones: 03/16/18 05:25 03/16/18 05:25 Other Labs: Lab Results x24hrs 03/16/18 03/16/18 03/16/18 Range/Units 13:27 12:18 11:09 WBC (4.8-10.8) x10^3/uL RBC (4.70-6.10) 10^6/uL Hgb (14.0-18.0) g/dL Hct (42.0-52.0) % MCV (80.0-94.0) fL MCH (27.0-31.0) pg MCHC (32.0-36.0) g/dL RDW (12.0-15.0) % Plt Count (130-450) 10^3/uL MPV (7.4-11.4) fL Neut # (Auto) (1.5-6.6) 10^3/uL Lymph # (Auto) (1.5-3.5) 10^3/uL [place] # (Auto) (0.0-1.0) 10^3/uL Eos # (Auto) (0.0-0.7) 10^3/uL Baso # (Auto) (0.0-0.1) 10^3/uL Absolute Nucleated RBC x10^3/uL Nucleated RBC % /100WBC Sodium (135-145) mmol/L Potassium (3.5-5.0) mmol/L Chloride (101-111) mmol/L Carbon Dioxide (21-32) mmol/L Anion Gap (6-13) BUN (6-20) mg/dL Creatinine (0.6-1.2) mg/dL Estimated GFR (MDRD) (>89) Glucose (70-100) mg/dL POC Whole Bld Glucose 87 75 141 H (70 - 100) mg/dL Glycated Hemoglobin (4.6-6.2) % Estim Average Glucose (70-100) Lactic Acid (0.5-2.2) mmol/L Calcium (8.5-10.3) mg/dL Phosphorus (2.5-4.6) mg/dL Magnesium (1.7-2.8) mg/dL Total Bilirubin (0.2-1.0) mg/dL AST (10-42) IU/L ALT (10-60) IU/L Alkaline Phosphatase (42-121) IU/L Total Protein (6.7-8.2) g/dL Albumin (3.2-5.5) g/dL Globulin (2.1-4.2) g/dL Albumin/Globulin Ratio (1.0-2.2) 03/16/18 03/16/18 03/16/18 Range/Units 10:13 06:14 05:25 WBC (4.8-10.8) x10^3/uL RBC (4.70-6.10) 10^6/uL Hgb (14.0-18.0) g/dL Hct (42.0-52.0) % MCV (80.0-94.0) fL MCH (27.0-31.0) pg MCHC (32.0-36.0) g/dL RDW (12.0-15.0) % Plt Count (130-450) 10^3/uL MPV (7.4-11.4) fL Neut # (Auto) (1.5-6.6) 10^3/uL Lymph # (Auto) (1.5-3.5) 10^3/uL [place] # (Auto) (0.0-1.0) 10^3/uL Eos # (Auto) (0.0-0.7) 10^3/uL Baso # (Auto) (0.0-0.1) 10^3/uL Absolute Nucleated RBC x10^3/uL Nucleated RBC % /100WBC Sodium (135-145) mmol/L Potassium (3.5-5.0) mmol/L Chloride (101-111) mmol/L Carbon Dioxide (21-32) mmol/L Anion Gap (6-13) BUN (6-20) mg/dL Creatinine (0.6-1.2) mg/dL Estimated GFR (MDRD) (>89) Glucose (70-100) mg/dL POC Whole Bld Glucose 228 H 276 H (70 - 100) mg/dL Glycated Hemoglobin 7.4 H (4.6-6.2) % Estim Average Glucose 166 H (70-100) Lactic Acid (0.5-2.2) mmol/L Calcium (8.5-10.3) mg/dL Phosphorus (2.5-4.6) mg/dL Magnesium (1.7-2.8) mg/dL Total Bilirubin (0.2-1.0) mg/dL AST (10-42) IU/L ALT (10-60) IU/L Alkaline Phosphatase (42-121) IU/L Total Protein (6.7-8.2) g/dL Albumin (3.2-5.5) g/dL Globulin (2.1-4.2) g/dL Albumin/Globulin Ratio (1.0-2.2) 03/16/18 03/16/18 03/16/18 Range/Units 05:25 05:25 05:25 WBC 13.5 H (4.8-10.8) x10^3/uL RBC 4.53 L (4.70-6.10) 10^6/uL Hgb 15.1 (14.0-18.0) g/dL Hct 44.9 (42.0-52.0) % MCV 99.2 H (80.0-94.0) fL MCH 33.4 H (27.0-31.0) pg MCHC 33.6 (32.0-36.0) g/dL RDW 13.4 (12.0-15.0) % Plt Count 123 L (130-450) 10^3/uL MPV 9.4 (7.4-11.4) fL Neut # (Auto) 11.1 H (1.5-6.6) 10^3/uL Lymph # (Auto) 1.3 L (1.5-3.5) 10^3/uL [place] # (Auto) 1.1 H (0.0-1.0) 10^3/uL Eos # (Auto) 0.0 (0.0-0.7) 10^3/uL Baso # (Auto) 0.0 (0.0-0.1) 10^3/uL Absolute Nucleated RBC 0.02 x10^3/uL Nucleated RBC % 0.2 /100WBC Sodium 135 (135-145) mmol/L Potassium 3.5 (3.5-5.0) mmol/L Chloride 98 L (101-111) mmol/L Carbon Dioxide 30 (21-32) mmol/L Anion Gap 7.0 (6-13) BUN 28 H (6-20) mg/dL Creatinine 0.9 (0.6-1.2) mg/dL Estimated GFR (MDRD) 80 L (>89) Glucose 307 H (70-100) mg/dL POC Whole Bld Glucose (70 - 100) mg/dL Glycated Hemoglobin (4.6-6.2) % Estim Average Glucose (70-100) Lactic Acid 1.6 (0.5-2.2) mmol/L Calcium 8.7 (8.5-10.3) mg/dL Phosphorus 2.4 L (2.5-4.6) mg/dL Magnesium 1.9 (1.7-2.8) mg/dL Total Bilirubin 1.3 H (0.2-1.0) mg/dL AST 28 (10-42) IU/L ALT 19 (10-60) IU/L Alkaline Phosphatase 68 (42-121) IU/L Total Protein 6.0 L (6.7-8.2) g/dL Albumin 3.5 (3.2-5.5) g/dL Globulin 2.5 (2.1-4.2) g/dL Albumin/Globulin Ratio 1.4 (1.0-2.2) 03/16/18 Range/Units 00:34 WBC (4.8-10.8) x10^3/uL RBC (4.70-6.10) 10^6/uL Hgb (14.0-18.0) g/dL Hct (42.0-52.0) % MCV (80.0-94.0) fL MCH (27.0-31.0) pg MCHC (32.0-36.0) g/dL RDW (12.0-15.0) % Plt Count (130-450) 10^3/uL MPV (7.4-11.4) fL Neut # (Auto) (1.5-6.6) 10^3/uL Lymph # (Auto) (1.5-3.5) 10^3/uL [place] # (Auto) (0.0-1.0) 10^3/uL Eos # (Auto) (0.0-0.7) 10^3/uL Baso # (Auto) (0.0-0.1) 10^3/uL Absolute Nucleated RBC x10^3/uL Nucleated RBC % /100WBC Sodium (135-145) mmol/L Potassium (3.5-5.0) mmol/L Chloride (101-111) mmol/L Carbon Dioxide (21-32) mmol/L Anion Gap (6-13) BUN (6-20) mg/dL Creatinine (0.6-1.2) mg/dL Estimated GFR (MDRD) (>89) Glucose (70-100) mg/dL POC Whole Bld Glucose 338 H (70 - 100) mg/dL Glycated Hemoglobin (4.6-6.2) % Estim Average Glucose (70-100) Lactic Acid (0.5-2.2) mmol/L Calcium (8.5-10.3) mg/dL Phosphorus (2.5-4.6) mg/dL Magnesium (1.7-2.8) mg/dL Total Bilirubin (0.2-1.0) mg/dL AST (10-42) IU/L ALT (10-60) IU/L Alkaline Phosphatase (42-121) IU/L Total Protein (6.7-8.2) g/dL Albumin (3.2-5.5) g/dL Globulin (2.1-4.2) g/dL Albumin/Globulin Ratio (1.0-2.2) ABX Reporting Has patient been on IV antibiotics over the past 48 hours?: Yes Assessment/Plan - Problem List (1) Small bowel obstruction due to adhesions Impression: Patient presented to the emergency department with nausea and vomiting as well as hiccups. The patient was found to have a small bowel obstruction near the jejunumduodenum junction. The obstruction appears to be high-grade on CT with possibility of a volvulus. Surgery performed: Exp lap. 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 The adhesion caused the SBO. POD#0 Plan: NPO IV fluids. Change to D5 from LR since he's diabetic. NG tube to suction IV antiemetics as needed IV morphine as needed Surgery consult will mange diet, pain, and abx if needed. (2) Hypokalemia Conclusion/Plan: Patient presents with hypokalemia likely secondary to nausea and vomiting. The patient's potassium was 3.3 on presentation. The patient does appear to be significantly dry due to volume loss. Given IV potassium overnight and 03/16 am he is 3.5. Continue K in his D5. (3) Hypertension Conclusion/Plan: The patient has a history of hypertension and blood pressure was significantly elevated in the emergency department with blood pressures ranging from 190-200 systolic. The patient is likely more hypertensive than normal secondary to being unable to take his home medication due to nausea and vomiting and also due to the distress of his current condition. After surgery his systolic is 130' s-140's Plan: Patient is n.p.o. therefore he will not be able to use his home medication Continue IV Vasotec every 6 hours and monitor blood pressure will titrate medication as needed. Qualifiers: Hypertension type: essential hypertension Qualified Code(s): I10 - Essential (primary) hypertension (4) Hyperglycemia Conclusion/Plan: The patient admits that he has a history of borderline diabetes but is not on any treatment at this time. The patient's blood sugar was significantly elevated on presentation at 240. Given how high his blood glucose was on presentation we will place the patient on n.p.o. sliding scale insulin. The patient will also be placed on D5 normal saline with 20 of K for IV fluid. A1c is 7.4 %. In the outpatient setting he may need metformin but not much more than that and dietary restriction. We will monitor blood glucose 4 times daily and cover with SSI. Selected Entries 03/16/18 03/16/18 03/16/18 00:35 00:51 06:15 Result (mg/dL) 338 338 276 03/16/18 03/16/18 03/16/18 06:30 12:19 13:29 Result (mg/dL) 276 75 87 (5) GERD (gastroesophageal reflux disease) Conclusion/Plan: The patient has history of GERD and is on omeprazole at home. While the patient is hospitalized he will be placed on IV famotidine. (6) Hyperlipemia Conclusion/Plan: Patient has a history of hyperlipidemia and does take statin at home. Patient will resume statin once he is able to take oral medication for now it will be held as he is n.p.o. Qualifiers: Hyperlipidemia type: unspecified Qualified Code(s): E78.5 - Hyperlipidemia , unspecified
[2018-03-16] MEDS: LATANOPROST 0.005% OPHTH DROPS RIGHTEYE SCH (21:06)
--- NOTE | 2018-03-17 00:08 | OPERATIVE REPORT ---
DATE OF SERVICE: 03/16/2018 Physician: Salvador Montelongo MD PREOPERATIVE DIAGNOSIS: Bowel obstruction POSTOPERATIVE DIAGNOSES 1. Bowel obstruction secondary to adhesions 2. Small bowel diverticulosis PROCEDURE 1. Diagnostic laparoscopy 2. Exploratory laparotomy 3. Lysis of adhesions 4. Partial small bowel resection 5. Placement of nasogastric tube under fluoroscopic guidance OPERATING SURGEON: Salvador Montelongo MD ANESTHESIA: General, Tita Lehman CRNA. INDICATIONS: The patient is an 87-year-old male who a year ago, presented to an outside facility with bowel obstruction. He resolved with medical therapy. He was told that this most likely would happen again. It is unknown why they did not operate on him for that reason. He now presents with abdominal pain starting on the day of admission. Pain was more of a fullness and uncomfortable. He has also had nausea and vomiting. CT scan of the abdomen and pelvis shows a bowel obstruction in the duodenojejunal region of unknown etiology. FINDINGS AT SURGERY: The patient had a large hiatal hernia, which made placement of the nasogastric tube difficult. Only until the stomach was pulled back into the abdominal cavity was the NG tube able to be placed into the body of the stomach being done under fluoroscopy initially. The patient had an adhesive band from a large inflammatory condition in the retroperitoneum. This band connected the proximal jejunum to the terminal ileum. I did look for a Meckel's in the terminal ileum and did not find any. There were adhesions to the small bowel and wrapping around it, which were divided. There did not appear to be any stricturing of the terminal ileum involved. I was able to easily pass contents through this area by milking the bowel. The patient approximately 6 inches from the ligament of Treitz had a big inflammatory area of scar tissue. This narrowed the small bowel. Thereafter, there were multiple large diverticulum measuring 2 to almost 3 inches in size. This was for approximately a foot and a half. This area was resected and a [id number] functional end-to-end jejunostomy was then performed. DESCRIPTION OF PROCEDURE: After informed consent was obtained, the patient was taken to the operating room and placed in supine position. General endotracheal anesthesia was administered. An NG tube was then placed, but was unable to be advanced into the stomach. Fluoroscopy was then applied and again I was not able to advance to the stomach past the hiatal hernia. The patient's abdomen was then prepped and draped in the usual sterile fashion. An infraumbilical incision was made in the skin using a scalpel. The 5 mm Optiview trocar was then inserted through the incision, through the fascia and into the abdominal cavity under direct vision. The abdomen was then insufflated. Looking inside, no injuries were noted. A 5 mm port was placed on either side of the midline. A 5 mm port at the umbilical area was then switched to a 12 mm port. The patient's liver and stomach appeared to be normal other than patient having a large hiatal hernia with part of the stomach in the chest. The stomach was then pulled back into the abdominal cavity and the NG tube was able to be advanced into the body of the stomach under fluoroscopy. The stomach was then allowed to return back into the chest cavity. Looking in the intestine there appeared to be a large scarred area in the mid portion of the abdomen. There appeared to be multiple of adhesions with scar tissue. This was about 6 inches from the ligament of Treitz. This area needed to be resected and could not be done laparoscopically as it would not be able to be mobilized. Therefore, the patient was then converted to an exploratory laparotomy. The ports were then removed. An upper midline abdominal incision was then made in the skin using a scalpel. It was carried down to and through the fascial layer using electrocautery. An Jose wound protector was then placed. The abdomen was then explored. The patient's liver appeared to be normal. There were multiple diverticulosis of the sigmoid colon. The sigmoid colon was very redundant. At the ligament of Treitz, there was this large inflammatory area. There was this adhesive band coming from this inflammatory going to the distal small intestine. This was then divided allowing freeing up of the terminal ileum. Evaluating the terminal ileum, there were multiple scar tissue as it was involved in the scarring in the retroperitoneum. The scar tissue was divided using electrocautery. After it was all freed up there did not appear to be any stricturing of the small intestine in this area. I was able to milk intestinal contents across the area that was involved without problems. There was no Meckel's diverticulum after running the small intestine. However, he did have multiple jejunal diverticulum in the first foot and half to 2 feet of the small intestine. There was a large inflammatory area pulling the jejunum in the one area down to the retroperitoneum. This was about 6 inches from the ligament of Treitz. This area was thickened, most likely causing the obstruction even after freeing up the adhesions. Because of this, this area needed to be resected. I resected the majority of the diverticulosis of the jejunum. There was still one diverticulum at the duodenojejunal junction, which I had left in place. It did not contain any contents of food. A EDWIGE-75 stapling device was then placed across the proximal jejunum just proximal to the obstruction. It was then engaged, stapling and dividing the bowel. Second location was then found about a foot and half to 2 feet from this area, where there was no further diverticulum. A EDWIGE-75 stapling device was then placed across the small bowel stapling and dividing it. The mesentery of the bowel to be resected was then divided using the LigaSure cautery device. Next, a [id number] functional end-to-end anastomosis was created using the divided ends of the jejunum. The 2 ends were then brought together and placed side by side. A posterior row of interrupted 3-0 silk sutures were then placed. An opening was then made in the distal end of each bowel wall with the EDWIGE-75 stapling device inserted. It was then engaged creating a new anastomosis. The distal end of the anastomosis that was opened was then closed using running 3-0 Vicryl suture. A second row of interrupted 3-0 silk sutures placed in Lembert fashion was then used to complete the anastomosis. The mesenteric defect was closed using running #3-0 Vicryl suture. The abdominal contents were then returned back to their original location intra-abdominally. The anterior abdominal fascial layer was then closed using a running #1 PDS suture. The skin was closed with tyrese. The umbilical fascial defect was closed using #0 Vicryl suture. The rest of the port incisions were closed with tyrese. Dry dressings were then placed on top. The patient was then awakened, extubated, and taken from the operating room in stable condition. ESTIMATED BLOOD LOSS: 25 mL COMPLICATIONS: None. CONDITION OF THE PATIENT AT THE END OF THE PROCEDURE: Stable. SPECIMENS: Proximal small bowel. DRAINS/PACKS: None. CLASSIFICATION OF WOUND: Clean/contaminated. TD: 03/16/2018 13:14
[2018-03-17] MEDS: ENALAPRILAT 1.25 MG/ML VIAL IVP SCH ×4 (00:11→18:01)
[2018-03-17] MEDS: INSULIN REGULAR HUMAN 100 UNIT/1 ML 10 ML MDV SUBQ SCH ×4 (00:12→18:54)
[2018-03-17] MEDS: SODIUM CHLORIDE FLUSH 0.9% 10 ML SYRINGE IVP PRN ×2 (00:23→06:16)
[2018-03-17] MEDS: D5NS W/20 MEQ KCL 1,000 ML IV SCH ×2 (02:10→17:00)
[2018-03-17] MEDS: cefOXitin 1 GM in SODIUM CHLORIDE 0.9% MINIBAG 100 ML IV SCH (04:38)
[2018-03-17 06:12] LABS: BASOPHILS % (AUTO) 0.2 %; HGB - HEMOGLOBIN 14.8 g/dL (14.0-18.0); LYMPHOCYTES # (AUTO) 1.4 10^3/uL (1.5-3.5); LYMPHOCYTES % (AUTO) 13.1 %; MEAN CORPUSCULAR HEMOGLOBIN 33.5 pg (27.0-31.0); MEAN CORPUSCULAR HGB CONC 33.5 g/dL (32.0-36.0); MEAN CORPUSCULAR VOLUME 100.2 fL (80.0-94.0); MEAN PLATELET VOLUME 9.2 fL (7.4-11.4); MONOCYTES # (AUTO) 0.9 10^3/uL (0.0-1.0); MONOCYTES % (AUTO) 8.7 %; NEUTROPHILS # (AUTO) 8.1 10^3/uL (1.5-6.6); PLT - PLATELET COUNT 118 10^3/uL (130-450); RED BLOOD COUNT 4.41 10^6/uL (4.70-6.10); RED CELL DISTRIBUTION WIDTH 13.6 % (12.0-15.0); WHITE BLOOD COUNT 10.3 x10^3/uL (4.8-10.8)
[2018-03-17 06:27] LABS: ALBUMIN 2.9 g/dL (3.2-5.5); ALBUMIN/GLOBULIN RATIO 1.3 (1.0-2.2); BILIRUBIN,TOTAL 1.4 mg/dL (0.2-1.0); CREATININE 0.8 mg/dL (0.6-1.2); MAGNESIUM 1.9 mg/dL (1.7-2.8); PHOSPHORUS 1.8 mg/dL (2.5-4.6); TOTAL PROTEIN 5.2 g/dL (6.7-8.2)
--- NOTE | 2018-03-17 08:21 | XRAY Report ---
Procedure Date: 03/16/2018 Accession Number: [id number] / [id number] Procedure: FL - Fluoro Independent Procedure CPT Code: FULL RESULT: EXAM: Fluoro Independent Procedure DATE: 03/16/2018 10:23 AM CLINICAL HISTORY: ngt placement COMPARISON: None. TECHNIQUE: The fluoroscopy procedure had a fluoroscopy time of 3 minutes 35 seconds. FINDINGS: There are no findings as no images are submitted for review. IMPRESSION: Fluoroscopy procedure without images captured and with no radiologist present. [facility]
--- NOTE | 2018-03-17 08:23 | PROVIDER PROGRESS NOTE ---
Subjective - General Admit Date: 03/15/18 - Review of Systems Wound/Incisions: positive: Dressing dry and intact Pulmonary: positive: No symptoms Cardiovascular: positive: No symptoms Gastrointestinal: positive: Other (no flatus) Objective - Patient Data Vital Signs: Vital Signs x48h Temp Pulse Resp BP Pulse Ox 03/17/18 07:51 36.7 C 85 20 186/92 H 94 03/17/18 06:40 80 16 176/97 H 91 L 03/17/18 06:35 79 16 173/104 H 91 L 03/17/18 06:30 84 16 178/107 H 92 03/17/18 06:27 84 16 174/96 H 91 L 03/17/18 06:10 83 16 175/106 H 94 03/17/18 00:33 95 172/89 H 03/17/18 00:28 89 170/95 H 03/17/18 00:23 90 167/88 H Weight: Weight 03/15/18 03/16/18 03/17/18 23:59 23:59 23:59 Weight (kg) 95.5 kg Intake & Output: Intake and Output Totals x24h 03/15/18 03/16/18 03/17/18 23:59 23:59 23:59 Intake Total 61.667 1719.666 506.667 Output Total 1300 2700 510 Balance -1238.333 -980.334 -3.333 - Lab Results Lab Results: 03/17/18 06:01 03/17/18 06:01 Other Lab Results: Lab Results x24hrs 03/17/18 03/17/18 03/17/18 Range/Units 06:01 06:01 06:01 WBC (4.8-10.8) x10^3/uL RBC (4.70-6.10) 10^6/uL Hgb (14.0-18.0) g/dL Hct (42.0-52.0) % MCV (80.0-94.0) fL MCH (27.0-31.0) pg MCHC (32.0-36.0) g/dL RDW (12.0-15.0) % Plt Count (130-450) 10^3/uL MPV (7.4-11.4) fL Neut # (Auto) (1.5-6.6) 10^3/uL Lymph # (Auto) (1.5-3.5) 10^3/uL [place] # (Auto) (0.0-1.0) 10^3/uL Eos # (Auto) (0.0-0.7) 10^3/uL Baso # (Auto) (0.0-0.1) 10^3/uL Absolute Nucleated RBC x10^3/uL Nucleated RBC % /100WBC Sodium 138 (135-145) mmol/L Potassium 3.8 (3.5-5.0) mmol/L Chloride 106 (101-111) mmol/L Carbon Dioxide 28 (21-32) mmol/L Anion Gap 4.0 L (6-13) BUN 26 H (6-20) mg/dL Creatinine 0.8 (0.6-1.2) mg/dL Estimated GFR (MDRD) 91 (>89) Glucose 225 H (70-100) mg/dL POC Whole Bld Glucose 217 H (70 - 100) mg/dL Lactic Acid 0.9 (0.5-2.2) mmol/L Calcium 8.0 L (8.5-10.3) mg/dL Phosphorus 1.8 L (2.5-4.6) mg/dL Magnesium 1.9 (1.7-2.8) mg/dL Total Bilirubin 1.4 H (0.2-1.0) mg/dL AST 23 (10-42) IU/L ALT 17 (10-60) IU/L Alkaline Phosphatase 54 (42-121) IU/L Total Protein 5.2 L (6.7-8.2) g/dL Albumin 2.9 L (3.2-5.5) g/dL Globulin 2.3 (2.1-4.2) g/dL Albumin/Globulin Ratio 1.3 (1.0-2.2) 03/17/18 03/16/18 03/16/18 Range/Units 06:01 23:50 17:58 WBC 10.3 (4.8-10.8) x10^3/uL RBC 4.41 L (4.70-6.10) 10^6/uL Hgb 14.8 (14.0-18.0) g/dL Hct 44.2 (42.0-52.0) % MCV 100.2 H (80.0-94.0) fL MCH 33.5 H (27.0-31.0) pg MCHC 33.5 (32.0-36.0) g/dL RDW 13.6 (12.0-15.0) % Plt Count 118 L (130-450) 10^3/uL MPV 9.2 (7.4-11.4) fL Neut # (Auto) 8.1 H (1.5-6.6) 10^3/uL Lymph # (Auto) 1.4 L (1.5-3.5) 10^3/uL [place] # (Auto) 0.9 (0.0-1.0) 10^3/uL Eos # (Auto) 0.0 (0.0-0.7) 10^3/uL Baso # (Auto) 0.0 (0.0-0.1) 10^3/uL Absolute Nucleated RBC 0.00 x10^3/uL Nucleated RBC % 0.0 /100WBC Sodium (135-145) mmol/L Potassium (3.5-5.0) mmol/L Chloride (101-111) mmol/L Carbon Dioxide (21-32) mmol/L Anion Gap (6-13) BUN (6-20) mg/dL Creatinine (0.6-1.2) mg/dL Estimated GFR (MDRD) (>89) Glucose (70-100) mg/dL POC Whole Bld Glucose 196 H 163 H (70 - 100) mg/dL Lactic Acid (0.5-2.2) mmol/L Calcium (8.5-10.3) mg/dL Phosphorus (2.5-4.6) mg/dL Magnesium (1.7-2.8) mg/dL Total Bilirubin (0.2-1.0) mg/dL AST (10-42) IU/L ALT (10-60) IU/L Alkaline Phosphatase (42-121) IU/L Total Protein (6.7-8.2) g/dL Albumin (3.2-5.5) g/dL Globulin (2.1-4.2) g/dL Albumin/Globulin Ratio (1.0-2.2) 03/16/18 03/16/18 03/16/18 Range/Units 13:27 12:18 11:09 WBC (4.8-10.8) x10^3/uL RBC (4.70-6.10) 10^6/uL Hgb (14.0-18.0) g/dL Hct (42.0-52.0) % MCV (80.0-94.0) fL MCH (27.0-31.0) pg MCHC (32.0-36.0) g/dL RDW (12.0-15.0) % Plt Count (130-450) 10^3/uL MPV (7.4-11.4) fL Neut # (Auto) (1.5-6.6) 10^3/uL Lymph # (Auto) (1.5-3.5) 10^3/uL [place] # (Auto) (0.0-1.0) 10^3/uL Eos # (Auto) (0.0-0.7) 10^3/uL Baso # (Auto) (0.0-0.1) 10^3/uL Absolute Nucleated RBC x10^3/uL Nucleated RBC % /100WBC Sodium (135-145) mmol/L Potassium (3.5-5.0) mmol/L Chloride (101-111) mmol/L Carbon Dioxide (21-32) mmol/L Anion Gap (6-13) BUN (6-20) mg/dL Creatinine (0.6-1.2) mg/dL Estimated GFR (MDRD) (>89) Glucose (70-100) mg/dL POC Whole Bld Glucose 87 75 141 H (70 - 100) mg/dL Lactic Acid (0.5-2.2) mmol/L Calcium (8.5-10.3) mg/dL Phosphorus (2.5-4.6) mg/dL Magnesium (1.7-2.8) mg/dL Total Bilirubin (0.2-1.0) mg/dL AST (10-42) IU/L ALT (10-60) IU/L Alkaline Phosphatase (42-121) IU/L Total Protein (6.7-8.2) g/dL Albumin (3.2-5.5) g/dL Globulin (2.1-4.2) g/dL Albumin/Globulin Ratio (1.0-2.2) // Range/Units 10:13 WBC (4.8-10.8) x10^3/uL RBC (4.70-6.10) 10^6/uL Hgb (14.0-18.0) g/dL Hct (42.0-52.0) % MCV (80.0-94.0) fL MCH (27.0-31.0) pg MCHC (32.0-36.0) g/dL RDW (12.0-15.0) % Plt Count (130-450) 10^3/uL MPV (7.4-11.4) fL Neut # (Auto) (1.5-6.6) 10^3/uL Lymph # (Auto) (1.5-3.5) 10^3/uL [place] # (Auto) (0.0-1.0) 10^3/uL Eos # (Auto) (0.0-0.7) 10^3/uL Baso # (Auto) (0.0-0.1) 10^3/uL Absolute Nucleated RBC x10^3/uL Nucleated RBC % /100WBC Sodium (135-145) mmol/L Potassium (3.5-5.0) mmol/L Chloride (101-111) mmol/L Carbon Dioxide (21-32) mmol/L Anion Gap (6-13) BUN (6-20) mg/dL Creatinine (0.6-1.2) mg/dL Estimated GFR (MDRD) (>89) Glucose (70-100) mg/dL POC Whole Bld Glucose 228 H (70 - 100) mg/dL Lactic Acid (0.5-2.2) mmol/L Calcium (8.5-10.3) mg/dL Phosphorus (2.5-4.6) mg/dL Magnesium (1.7-2.8) mg/dL Total Bilirubin (0.2-1.0) mg/dL AST (10-42) IU/L ALT (10-60) IU/L Alkaline Phosphatase (42-121) IU/L Total Protein (6.7-8.2) g/dL Albumin (3.2-5.5) g/dL Globulin (2.1-4.2) g/dL Albumin/Globulin Ratio (1.0-2.2) - Current Medications Current Medications: Current Medications Generic Name Dose Route Start Last Admin Trade Name Freq PRN Reason Stop Dose Admin Enalaprilat 1.25 mg 03/16/18 00:00 03/17/18 06:14 Vasotec Inj IVP 1.25 mg Q6HR BONIFACIO Administration Potassium Chloride/Dextrose/Sod Cl 1,000 mls @ 100 mls/hr 03/15/18 20:00 02:10 IV 100 mls/hr .Q10H BONIFACIO Administration Famotidine 50 mls @ 100 mls/hr 03/15/18 21:00 03/16/18 21:36 Pepcid 20 Mg/50 Ml IV Infused BID BONIFACIO Infusion Latanoprost 1 drops 03/16/18 21:00 03/16/18 21:06 Xalatan Ophth Drops RIGHTEYE 1 drops QPM BONIFACIO Administration Sodium Chloride 10 ml 03/15/18 19:59 03/17/18 06:16 Normal Saline Flush 0.9% IVP 30 ml PRN PRN Administration NEEDED PER PROVIDER ORDERS Sodium Chloride 10 ml 03/16/18 01:00 03/16/18 18:55 Normal Saline Flush 0.9% IVP 10 ml 0100,0900,1700 BONIFACIO Administration - Physical Exam Respiratory: positive: No respiratory distress Cardiovascular: positive: Regular rate & rhythm Abdomen: positive: Other (dressing dry) Impression/Plan - Problem List Problem List: s/p partial small bowel resection for adhesion obstruction POD#1. Still having bile out ngt. Continue ngt/iv fluids PT/mobilized patient.
[2018-03-17] MEDS: ENOXAPARIN 40 MG/0.4 ML SYRINGE SUBQ SCH (09:08)
[2018-03-17] MEDS: SODIUM CHLORIDE FLUSH 0.9% 10 ML SYRINGE IVP SCH ×2 (09:08→17:00)
[2018-03-17] MEDS: FAMOTIDINE 20 MG/50 ML 50 ML IV SCH ×2 (09:08→21:40)
--- NOTE | 2018-03-17 10:28 | XRAY Report ---
Procedure Date: 03/17/2018 Accession Number: [id number] / [id number] Procedure: XR - Abdomen Acute CPT Code: FULL RESULT: EXAM: Abdomen Acute DATE: 03/17/2018 9:50 AM CLINICAL HISTORY: SBO COMPARISON: Radiograph and CT 03/15/2018. TECHNIQUE: 2 views abdomen and 1 view chest. FINDINGS: CHEST: Lungs/Pleura: No focal opacities. No effusion or pneumothorax. Mediastinum: Within exam limitations, cardiomediastinal contour is normal. ABDOMEN: The exam is limited by the patient's body habitus and technique. Upright chest and abdomen radiographs demonstrates suggestion of free air under the right hemidiaphragm. This is not demonstrated on the previous radiograph or CT 03/15/2018. The bowel gas pattern itself demonstrates a paucity of gas and nonobstructive pattern with gas in the large bowel. IMPRESSION: No bowel obstruction. Limited evaluation with question of interval development of free air. Given limitations in technique, confirmatory repeat abdominal radiographs or if clinically warranted CT abdomen are recommended. RADIA
[2018-03-17] MEDS ORDERED: SOAP SUDS ENEMA 1 EACH RC ONE (16:51)
[2018-03-17] MEDS: LATANOPROST 0.005% OPHTH DROPS RIGHTEYE SCH (21:40)
--- NOTE | 2018-03-17 22:30 | PROVIDER PROGRESS NOTE ---
Subjective - Prog Note Date Prog Note Date: 03/17/18 Prog Note Time: 18:00 - Subjective Subjective: NG pulled by him. Current Medications - Current Medications Current Medications: Active Medications Clonidine HCl ([id number]) 1 patch TOP Q7D [facility] Enalaprilat (Vasotec Inj) 1.25 mg IVP Q6HR [facility] Last Admin: 03/17/18 18:01 Dose: 1.25 mg Enoxaparin Sodium (Lovenox) 40 mg SUBQ DAILY [facility] Last Admin: 03/17/18 09:08 Dose: 40 mg Hydromorphone HCl (Dilaudid Inj Carp) 1 mg IVP Q2H PRN PRN Reason: PAIN Hydromorphone HCl (Dilaudid Inj Syringe) 0.5 mg IVP Q2H PRN PRN Reason: PAIN Potassium Chloride/Dextrose/Sod Cl () 1,000 mls @ 100 mls/hr IV .Q10H [facility] Last Admin: 03/17/18 17:00 Dose: 100 mls/hr Famotidine (Pepcid 20 Mg/50 Ml) 50 mls @ 100 mls/hr IV BID [facility] Last Infusion: 03/17/18 22:10 Dose: Infused Insulin Human Regular (Novolin R) 1 - 9 unit SUBQ Q6HR [facility] PRN Reason: Protocol Last Admin: 03/17/18 18:54 Dose: 5 unit Latanoprost (Xalatan Ophth Drops) 1 drops RIGHTEYE QPM [facility] Last Admin: 03/17/18 21:40 Dose: 1 drops Morphine Sulfate (Morphine) 2 mg IVP Q2H PRN PRN Reason: Pain 8 to 10 Ondansetron HCl (Zofran Inj) 4 mg IVP Q6HR PRN PRN Reason: Nausea / Vomiting Prochlorperazine Edisylate (Compazine Inj) 10 mg IVP Q6HR PRN PRN Reason: Nausea / Vomiting Promethazine HCl (Phenergan Inj) 25 mg IM Q6HR PRN PRN Reason: Nausea / Vomiting Sodium Chloride (Normal Saline Flush 0.9%) 10 ml IVP PRN PRN PRN Reason: NEEDED PER PROVIDER ORDERS Last Admin: 03/17/18 06:16 Dose: 30 ml Sodium Chloride (Normal Saline Flush 0.9%) 10 ml IVP 0100,0900,1700 BONIFACIO Last Admin: 03/17/18 17:00 Dose: 10 ml Aspirin 325 mg PO DAILY 03/15/18 Latanoprost 0.005% Ophth Drops [Xalatan Ophth Drops] 1 drops RIGHTEYE QPM Losartan/Hydrochlorothiazide [Losartan-Hctz 100-12.5 mg Tab] 1 tab PO DAILY Omeprazole 20 mg PO BID 03/15/18 Primidone 100 mg PO BID 03/15/18 Simvastatin 20 mg PO QPM 03/15/18 Terazosin [Hytrin] 2 mg PO QPM 03/15/18 Zolpidem [Ambien] 5 mg PO QPM PRN 03/15/18 Objective - Vital Signs/Intake & Output Reviewed Vital Signs: Yes Vital Signs: Vital Signs x48h Temp Pulse Resp BP BP Pulse Ox 03/17/18 19:07 80 170/85 H 03/17/18 18:52 77 176/83 H 03/17/18 18:40 176/89 H 03/17/18 18:22 182/93 H 03/17/18 18:17 191/96 H 03/17/18 18:10 184/93 H 03/17/18 18:00 198/94 H 03/17/18 15:35 36.4 C L 86 16 191/94 H 94 Intake & Output: Intake & Output 03/14/18 03/15/18 03/16/18 03/17/18 23:59 23:59 23:59 23:59 Intake Total 61.667 7318.727 5542.667 Output Total 1300 2700 1610 Balance -1238.333 -980.334 36.667 - Objective General Appearance: positive: No acute distress, Alert, Mild distress Eyes Bilateral: positive: PERRL, EOMI ENT: positive: Dry mucous membranes Neck: positive: No JVD Respiratory: positive: Chest non-tender, No respiratory distress, Other (no crackles, rhonchi wheezing) Cardiovascular: positive: Regular rate & rhythm, No murmur, No gallop Rectal: positive: Other (no bowel sounds yet, nondistended) Skin: positive: Warm, Dry Extremities: positive: Full ROM, No pedal edema Neurologic/Psychiatric: positive: Oriented x3, CN's nml (2-12), Motor nml - Lab Results Fish Bones: 03/17/18 06:01 03/17/18 06:01 Other Labs: Lab Results x24hrs 03/17/18 03/17/18 03/17/18 Range/Units 18:35 10:59 06:01 WBC (4.8-10.8) x10^3/uL RBC (4.70-6.10) 10^6/uL Hgb (14.0-18.0) g/dL Hct (42.0-52.0) % MCV (80.0-94.0) fL MCH (27.0-31.0) pg MCHC (32.0-36.0) g/dL RDW (12.0-15.0) % Plt Count (130-450) 10^3/uL MPV (7.4-11.4) fL Neut # (Auto) (1.5-6.6) 10^3/uL Lymph # (Auto) (1.5-3.5) 10^3/uL [place] # (Auto) (0.0-1.0) 10^3/uL Eos # (Auto) (0.0-0.7) 10^3/uL Baso # (Auto) (0.0-0.1) 10^3/uL Absolute Nucleated RBC x10^3/uL Nucleated RBC % /100WBC Sodium (135-145) mmol/L Potassium (3.5-5.0) mmol/L Chloride (101-111) mmol/L Carbon Dioxide (21-32) mmol/L Anion Gap (6-13) BUN (6-20) mg/dL Creatinine (0.6-1.2) mg/dL Estimated GFR (MDRD) (>89) Glucose (70-100) mg/dL POC Whole Bld Glucose 229 H 190 H 217 H (70 - 100) mg/dL Lactic Acid (0.5-2.2) mmol/L Calcium (8.5-10.3) mg/dL Phosphorus (2.5-4.6) mg/dL Magnesium (1.7-2.8) mg/dL Total Bilirubin (0.2-1.0) mg/dL AST (10-42) IU/L ALT (10-60) IU/L Alkaline Phosphatase (42-121) IU/L Total Protein (6.7-8.2) g/dL Albumin (3.2-5.5) g/dL Globulin (2.1-4.2) g/dL Albumin/Globulin Ratio (1.0-2.2) 03/17/18 03/17/18 03/17/18 Range/Units 06:01 06:01 06:01 WBC 10.3 (4.8-10.8) x10^3/uL RBC 4.41 L (4.70-6.10) 10^6/uL Hgb 14.8 (14.0-18.0) g/dL Hct 44.2 (42.0-52.0) % MCV 100.2 H (80.0-94.0) fL MCH 33.5 H (27.0-31.0) pg MCHC 33.5 (32.0-36.0) g/dL RDW 13.6 (12.0-15.0) % Plt Count 118 L (130-450) 10^3/uL MPV 9.2 (7.4-11.4) fL Neut # (Auto) 8.1 H (1.5-6.6) 10^3/uL Lymph # (Auto) 1.4 L (1.5-3.5) 10^3/uL [place] # (Auto) 0.9 (0.0-1.0) 10^3/uL Eos # (Auto) 0.0 (0.0-0.7) 10^3/uL Baso # (Auto) 0.0 (0.0-0.1) 10^3/uL Absolute Nucleated RBC 0.00 x10^3/uL Nucleated RBC % 0.0 /100WBC Sodium 138 (135-145) mmol/L Potassium 3.8 (3.5-5.0) mmol/L Chloride 106 (101-111) mmol/L Carbon Dioxide 28 (21-32) mmol/L Anion Gap 4.0 L (6-13) BUN 26 H (6-20) mg/dL Creatinine 0.8 (0.6-1.2) mg/dL Estimated GFR (MDRD) 91 (>89) Glucose 225 H (70-100) mg/dL POC Whole Bld Glucose (70 - 100) mg/dL Lactic Acid 0.9 (0.5-2.2) mmol/L Calcium 8.0 L (8.5-10.3) mg/dL Phosphorus 1.8 L (2.5-4.6) mg/dL Magnesium 1.9 (1.7-2.8) mg/dL Total Bilirubin 1.4 H (0.2-1.0) mg/dL AST 23 (10-42) IU/L ALT 17 (10-60) IU/L Alkaline Phosphatase 54 (42-121) IU/L Total Protein 5.2 L (6.7-8.2) g/dL Albumin 2.9 L (3.2-5.5) g/dL Globulin 2.3 (2.1-4.2) g/dL Albumin/Globulin Ratio 1.3 (1.0-2.2) 03/16/18 Range/Units 23:50 WBC (4.8-10.8) x10^3/uL RBC (4.70-6.10) 10^6/uL Hgb (14.0-18.0) g/dL Hct (42.0-52.0) % MCV (80.0-94.0) fL MCH (27.0-31.0) pg MCHC (32.0-36.0) g/dL RDW (12.0-15.0) % Plt Count (130-450) 10^3/uL MPV (7.4-11.4) fL Neut # (Auto) (1.5-6.6) 10^3/uL Lymph # (Auto) (1.5-3.5) 10^3/uL [place] # (Auto) (0.0-1.0) 10^3/uL Eos # (Auto) (0.0-0.7) 10^3/uL Baso # (Auto) (0.0-0.1) 10^3/uL Absolute Nucleated RBC x10^3/uL Nucleated RBC % /100WBC Sodium (135-145) mmol/L Potassium (3.5-5.0) mmol/L Chloride (101-111) mmol/L Carbon Dioxide (21-32) mmol/L Anion Gap (6-13) BUN (6-20) mg/dL Creatinine (0.6-1.2) mg/dL Estimated GFR (MDRD) (>89) Glucose (70-100) mg/dL POC Whole Bld Glucose 196 H (70 - 100) mg/dL Lactic Acid (0.5-2.2) mmol/L Calcium (8.5-10.3) mg/dL Phosphorus (2.5-4.6) mg/dL Magnesium (1.7-2.8) mg/dL Total Bilirubin (0.2-1.0) mg/dL AST (10-42) IU/L ALT (10-60) IU/L Alkaline Phosphatase (42-121) IU/L Total Protein (6.7-8.2) g/dL Albumin (3.2-5.5) g/dL Globulin (2.1-4.2) g/dL Albumin/Globulin Ratio (1.0-2.2) ABX Reporting Has patient been on IV antibiotics over the past 48 hours?: Yes Assessment/Plan - Problem List (1) Small bowel obstruction due to adhesions Impression: Impression: Patient presented to the emergency department with nausea and vomiting as well as hiccups. The patient was found to have a small bowel obstruction near the jejunumduodenum junction. The obstruction appears to be high-grade on CT with possibility of a volvulus. Surgery performed: Exp lap. w resection of jejunum. 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 The adhesion caused the SBO. POD#1 Plan: NPO IV fluids. Change to D5 from LR since he's diabetic. NG tube to suction IV antiemetics as needed IV morphine as needed Surgery consult will mange diet, pain, and abx if needed. (2) Hypokalemia Conclusion/Plan: Patient presents with hypokalemia likely secondary to nausea and vomiting. The patient's potassium was 3.3 on presentation. The patient does appear to be significantly dry due to volume loss. Given IV potassium overnight and 03/16 am he is 3.5. Continue K in his D5. (3) Hypertension Conclusion/Plan: The patient has a history of hypertension and blood pressure was significantly elevated in the emergency department with blood pressures ranging from 190-200 systolic. The patient is likely more hypertensive than normal secondary to being unable to take his home medication due to nausea and vomiting and also due to the distress of his current condition. After surgery his systolic is 130' s-140's and today 170's-190's. Plan: Patient is n.p.o. therefore he will not be able to use his home medication Continue IV Vasotec every 6 hours and monitor blood pressure will titrate medication as needed. add clonidine patch Qualifiers: Hypertension type: essential hypertension Qualified Code(s): I10 - Essential (primary) hypertension (4) Hyperglycemia Conclusion/Plan: The patient admits that he has a history of borderline diabetes but is not on any treatment at this time. The patient's blood sugar was significantly elevated on presentation at 240. Given how high his blood glucose was on presentation we will place the patient on n.p.o. sliding scale insulin. The patient will also be placed on D5 normal saline with 20 of K for IV fluid. A1c is 7.4 %. In the outpatient setting he may need metformin but not much more than that and dietary restriction. Since 1600 yesterday he has been 163-229. We will monitor blood glucose 4 times daily and cover with SSI.
[2018-03-17] MEDS ORDERED: cloNIDine 0.1 MG PATCH TOP SCH (23:00)
[2018-03-18] MEDS: INSULIN REGULAR HUMAN 100 UNIT/1 ML 10 ML MDV SUBQ SCH ×4 (00:01→18:17)
[2018-03-18] MEDS: ENALAPRILAT 1.25 MG/ML VIAL IVP SCH ×4 (00:05→18:18)
[2018-03-18] MEDS: SODIUM CHLORIDE FLUSH 0.9% 10 ML SYRINGE IVP SCH ×3 (00:05→15:33)
[2018-03-18] MEDS ORDERED: cloNIDine 0.2 MG PATCH TOP SCH (01:00)
[2018-03-18] MEDS: D5NS W/20 MEQ KCL 1,000 ML IV SCH ×2 (04:15→17:29)
[2018-03-18 05:49] LABS: BASOPHILS % (AUTO) 0.3 %; EOSINOPHILS % (AUTO) 0.5 %; HGB - HEMOGLOBIN 13.9 g/dL (14.0-18.0); LYMPHOCYTES # (AUTO) 1.6 10^3/uL (1.5-3.5); LYMPHOCYTES % (AUTO) 19.5 %; MEAN CORPUSCULAR HEMOGLOBIN 33.4 pg (27.0-31.0); MEAN CORPUSCULAR HGB CONC 33.3 g/dL (32.0-36.0); MEAN CORPUSCULAR VOLUME 100.3 fL (80.0-94.0); MEAN PLATELET VOLUME 9.1 fL (7.4-11.4); MONOCYTES # (AUTO) 0.9 10^3/uL (0.0-1.0); MONOCYTES % (AUTO) 11.1 %; NEUTROPHILS # (AUTO) 5.6 10^3/uL (1.5-6.6); NEUTROPHILS % (AUTO) 68.6 %; PLT - PLATELET COUNT 126 10^3/uL (130-450); RED BLOOD COUNT 4.16 10^6/uL (4.70-6.10); WHITE BLOOD COUNT 8.1 x10^3/uL (4.8-10.8)
[2018-03-18] MEDS: SODIUM CHLORIDE FLUSH 0.9% 10 ML SYRINGE IVP PRN ×3 (05:53→18:18)
[2018-03-18 06:09] LABS: ALBUMIN 2.7 g/dL (3.2-5.5); ALBUMIN/GLOBULIN RATIO 1.1 (1.0-2.2); BILIRUBIN,TOTAL 1.3 mg/dL (0.2-1.0); CALCIUM 8.1 mg/dL (8.5-10.3); CREATININE 0.7 mg/dL (0.6-1.2); MAGNESIUM 1.9 mg/dL (1.7-2.8); PHOSPHORUS 1.4 mg/dL (2.5-4.6); TOTAL PROTEIN 5.2 g/dL (6.7-8.2)
[2018-03-18] MEDS: FAMOTIDINE 20 MG/50 ML 50 ML IV SCH ×2 (08:04→20:23)
[2018-03-18] MEDS: ENOXAPARIN 40 MG/0.4 ML SYRINGE SUBQ SCH (08:32)
[2018-03-18] MEDS ORDERED: ZOLPIDEM 5 MG TABLET PO PRN (13:05)
--- NOTE | 2018-03-18 13:22 | PROVIDER PROGRESS NOTE ---
Subjective - Prog Note Date Prog Note Date: 03/18/18 Prog Note Time: 11:20 - Subjective Pt reports feeling: Improved Subjective: The patient says he feels better today. He was up in the bathroom and has been passing gas but no stool. He denies any nausea or vomiting. He says he slept fairly well and his pain is well-managed. Current Medications - Current Medications Current Medications: Active Medications Generic Name Dose Route Start Last Admin Trade Name Freq PRN Reason Stop Dose Admin Clonidine HCl 2 patch 03/18/18 13:07 [id number] TOP Q7D BONIFACIO Enalaprilat 1.25 mg 03/16/18 00:00 03/18/18 11:53 Vasotec Inj IVP 1.25 mg Q6HR BONIFACIO Administration Enoxaparin Sodium 40 mg 03/17/18 09:00 03/18/18 08:32 Lovenox SUBQ Not Given DAILY BONIFACIO Hydromorphone HCl 1 mg 03/16/18 11:49 Dilaudid Inj Carp IVP Q2H PRN PAIN Hydromorphone HCl 0.5 mg 03/16/18 11:49 Dilaudid Inj Syringe IVP Q2H PRN PAIN Potassium Chloride/Dextrose/Sod Cl 1,000 mls @ 100 mls/hr 03/15/18 20:00 04:15 IV 100 mls/hr .Q10H BONIFACIO Administration Famotidine 50 mls @ 100 mls/hr 03/15/18 21:00 03/18/18 08:43 Pepcid 20 Mg/50 Ml IV Infused BID [facility] Infusion Insulin Human Regular 1 - 9 unit 03/17/18 12:00 03/18/18 11:47 Novolin R SUBQ Not Given Q6HR [facility] Protocol Latanoprost 1 drops 03/16/18 21:00 03/17/18 21:40 Xalatan Ophth Drops RIGHTEYE 1 drops QPM BONIFACIO Administration Morphine Sulfate 2 mg 03/15/18 19:59 Morphine IVP Q2H PRN Pain 8 to 10 Non-Formulary Medication 1 tab 03/19/18 09:00 Losartan/Hydrochlorothiazide [Losartan-Hctz 100-12.5 Mg Tab] PO DAILY BONIFACIO Non-Formulary Medication 20 mg 03/18/18 21:00 Omeprazole [Omeprazole] PO BID BONIFACIO Non-Formulary Medication 20 mg 03/18/18 21:00 Simvastatin [Simvastatin] PO QPM BONIFACIO Ondansetron HCl 4 mg 03/15/18 19:59 Zofran Inj IVP Q6HR PRN Nausea / Vomiting Primidone 100 mg 03/18/18 21:00 Mysoline PO BID [facility] Prochlorperazine Edisylate 10 mg 03/15/18 19:59 Compazine Inj IVP Q6HR PRN Nausea / Vomiting Promethazine HCl 25 mg 03/15/18 19:59 Phenergan Inj IM Q6HR PRN Nausea / Vomiting Sodium Chloride 10 ml 03/15/18 19:59 03/18/18 05:53 Normal Saline Flush 0.9% IVP 20 ml PRN PRN Administration NEEDED PER PROVIDER ORDERS Sodium Chloride 10 ml 03/16/18 01:00 03/18/18 08:32 Normal Saline Flush 0.9% IVP Not Given 0100,0900,1700 [facility] Terazosin HCl 2 mg 03/18/18 21:00 Hytrin PO QPM BONIFACIO Zolpidem Tartrate 5 mg 03/18/18 13:05 Ambien PO QPM PRN Insomnia Aspirin 325 mg PO DAILY 03/15/18 Latanoprost 0.005% Ophth Drops [Xalatan Ophth Drops] 1 drops RIGHTEYE QPM Losartan/Hydrochlorothiazide [Losartan-Hctz 100-12.5 mg Tab] 1 tab PO DAILY Omeprazole 20 mg PO BID 03/15/18 Primidone 100 mg PO BID 03/15/18 Simvastatin 20 mg PO QPM 03/15/18 Terazosin [Hytrin] 2 mg PO QPM 03/15/18 Zolpidem [Ambien] 5 mg PO QPM PRN 03/15/18 Objective - Vital Signs/Intake & Output Reviewed Vital Signs: Yes Vital Signs: Vital Signs x48h Temp Pulse Resp BP BP Pulse Ox 03/18/18 08:00 36.5 C 64 16 194/92 H 93 03/18/18 06:58 68 170/86 H 03/18/18 06:43 66 158/87 H 03/18/18 06:28 72 186/91 H 03/18/18 06:13 68 184/89 H 03/18/18 06:08 66 185/88 H 03/18/18 06:01 68 185/85 H 03/18/18 05:45 72 185/98 H 03/18/18 05:30 69 166/109 H Intake & Output: Intake & Output 03/15/18 03/16/18 03/17/18 03/18/18 23:59 23:59 23:59 23:59 Intake Total 61.667 4366.887 4410.667 1050 Output Total 1300 2700 1610 1350 Balance -1238.333 -980.334 36.667 -300 - Objective General Appearance: positive: No acute distress, Alert Eyes Bilateral: positive: Normal inspection, PERRL, EOMI, No lid inflammation, Conjunctivae nml, No scleral icterus ENT: positive: ENT inspection nml, Pharynx nml, No signs of dehydration Neck: positive: Nml inspection, Thyroid nml, No JVD, Trachea midline. negative : Thyromegaly Respiratory: positive: Chest non-tender, No respiratory distress, Breath sounds nml. negative: Wheezes, Rales, Rhonchi Cardiovascular: positive: Regular rate & rhythm, No murmur, No gallop Abdomen: positive: Non-tender, No organomegaly, Nml bowel sounds, No distention. negative: Guarding, Rebound Back: positive: Nml inspection. negative: CVA tenderness (R), CVA tenderness (L ) Skin: positive: Color nml, No rash, Warm, Dry. negative: Cyanosis Extremities: positive: Non-tender, Full ROM, Nml appearance, No pedal edema - Lab Results Fish Bones: 03/18/18 05:42 03/18/18 05:42 Other Labs: Lab Results x24hrs 03/18/18 03/18/18 03/18/18 Range/Units 11:13 05:54 05:42 WBC (4.8-10.8) x10^3/uL RBC (4.70-6.10) 10^6/uL Hgb (14.0-18.0) g/dL Hct (42.0-52.0) % MCV (80.0-94.0) fL MCH (27.0-31.0) pg MCHC (32.0-36.0) g/dL RDW (12.0-15.0) % Plt Count (130-450) 10^3/uL MPV (7.4-11.4) fL Neut # (Auto) (1.5-6.6) 10^3/uL Lymph # (Auto) (1.5-3.5) 10^3/uL [place] # (Auto) (0.0-1.0) 10^3/uL Eos # (Auto) (0.0-0.7) 10^3/uL Baso # (Auto) (0.0-0.1) 10^3/uL Absolute Nucleated RBC x10^3/uL Nucleated RBC % /100WBC Sodium (135-145) mmol/L Potassium (3.5-5.0) mmol/L Chloride (101-111) mmol/L Carbon Dioxide (21-32) mmol/L Anion Gap (6-13) BUN (6-20) mg/dL Creatinine (0.6-1.2) mg/dL Estimated GFR (MDRD) (>89) Glucose (70-100) mg/dL POC Whole Bld Glucose 152 H 188 H (70 - 100) mg/dL Lactic Acid 0.9 (0.5-2.2) mmol/L Calcium (8.5-10.3) mg/dL Phosphorus (2.5-4.6) mg/dL Magnesium (1.7-2.8) mg/dL Total Bilirubin (0.2-1.0) mg/dL AST (10-42) IU/L ALT (10-60) IU/L Alkaline Phosphatase (42-121) IU/L Total Protein (6.7-8.2) g/dL Albumin (3.2-5.5) g/dL Globulin (2.1-4.2) g/dL Albumin/Globulin Ratio (1.0-2.2) 03/18/18 03/18/18 03/17/18 Range/Units 05:42 05:42 23:34 WBC 8.1 (4.8-10.8) x10^3/uL RBC 4.16 L (4.70-6.10) 10^6/uL Hgb 13.9 L (14.0-18.0) g/dL Hct 41.7 L (42.0-52.0) % MCV 100.3 H (80.0-94.0) fL MCH 33.4 H (27.0-31.0) pg MCHC 33.3 (32.0-36.0) g/dL RDW 13.0 (12.0-15.0) % Plt Count 126 L (130-450) 10^3/uL MPV 9.1 (7.4-11.4) fL Neut # (Auto) 5.6 (1.5-6.6) 10^3/uL Lymph # (Auto) 1.6 (1.5-3.5) 10^3/uL [place] # (Auto) 0.9 (0.0-1.0) 10^3/uL Eos # (Auto) 0.0 (0.0-0.7) 10^3/uL Baso # (Auto) 0.0 (0.0-0.1) 10^3/uL Absolute Nucleated RBC 0.01 x10^3/uL Nucleated RBC % 0.1 /100WBC Sodium 139 (135-145) mmol/L Potassium 3.7 (3.5-5.0) mmol/L Chloride 108 (101-111) mmol/L Carbon Dioxide 26 (21-32) mmol/L Anion Gap 5.0 L (6-13) BUN 23 H (6-20) mg/dL Creatinine 0.7 (0.6-1.2) mg/dL Estimated GFR (MDRD) 106 (>89) Glucose 195 H (70-100) mg/dL POC Whole Bld Glucose 159 H (70 - 100) mg/dL Lactic Acid (0.5-2.2) mmol/L Calcium 8.1 L (8.5-10.3) mg/dL Phosphorus 1.4 L (2.5-4.6) mg/dL Magnesium 1.9 (1.7-2.8) mg/dL Total Bilirubin 1.3 H (0.2-1.0) mg/dL AST 19 (10-42) IU/L ALT 16 (10-60) IU/L Alkaline Phosphatase 49 (42-121) IU/L Total Protein 5.2 L (6.7-8.2) g/dL Albumin 2.7 L (3.2-5.5) g/dL Globulin 2.5 (2.1-4.2) g/dL Albumin/Globulin Ratio 1.1 (1.0-2.2) //18 Range/Units 18:35 WBC (4.8-10.8) x10^3/uL RBC (4.70-6.10) 10^6/uL Hgb (14.0-18.0) g/dL Hct (42.0-52.0) % MCV (80.0-94.0) fL MCH (27.0-31.0) pg MCHC (32.0-36.0) g/dL RDW (12.0-15.0) % Plt Count (130-450) 10^3/uL MPV (7.4-11.4) fL Neut # (Auto) (1.5-6.6) 10^3/uL Lymph # (Auto) (1.5-3.5) 10^3/uL [place] # (Auto) (0.0-1.0) 10^3/uL Eos # (Auto) (0.0-0.7) 10^3/uL Baso # (Auto) (0.0-0.1) 10^3/uL Absolute Nucleated RBC x10^3/uL Nucleated RBC % /100WBC Sodium (135-145) mmol/L Potassium (3.5-5.0) mmol/L Chloride (101-111) mmol/L Carbon Dioxide (21-32) mmol/L Anion Gap (6-13) BUN (6-20) mg/dL Creatinine (0.6-1.2) mg/dL Estimated GFR (MDRD) (>89) Glucose (70-100) mg/dL POC Whole Bld Glucose 229 H (70 - 100) mg/dL Lactic Acid (0.5-2.2) mmol/L Calcium (8.5-10.3) mg/dL Phosphorus (2.5-4.6) mg/dL Magnesium (1.7-2.8) mg/dL Total Bilirubin (0.2-1.0) mg/dL AST (10-42) IU/L ALT (10-60) IU/L Alkaline Phosphatase (42-121) IU/L Total Protein (6.7-8.2) g/dL Albumin (3.2-5.5) g/dL Globulin (2.1-4.2) g/dL Albumin/Globulin Ratio (1.0-2.2) - Diagnostic Imaging Diagnostic Imaging Results: positive: Prelim report reviewed Diagnostic Imaging Comments: EXAM: ABDOMINAL SERIES AND PA CHEST EXAM DATE: 03/15/2018 04:59 PM. CLINICAL HISTORY: Abdomen pain since yesterday with nausea. History of bowel obstruction. COMPARISON: None. TECHNIQUE: 2 views abdomen and 1 view chest. FINDINGS: CHEST: Lungs/Pleura: No focal opacities. No effusion or pneumothorax. Mediastinum: Normal heart size. Moderate hiatal hernia. ABDOMEN: Bowel Gas Pattern: Within normal limits. No dilated loops or abnormal fluid levels. Free Air: None. Other: Left soft tissue fullness. Mild scoliosis and multilevel degenerative lumbar disk disease. IMPRESSION: Left abdominal soft tissue fullness suggesting abdominal situs or soft tissue mass. No bowel obstruction or free air. EXAM: CT ABDOMEN AND PELVIS EXAM DATE: 03/15/2018 06:40 PM. CLINICAL HISTORY: IV only, vomiting, cannot jimena po. History of bowel obstruction. Constipation and vomiting. COMPARISONS: None. TECHNIQUE: Routine helical CT imaging was performed through the abdomen and pelvis. IV contrast: ISOVUE 300 100mL. Enteric contrast: No. Reconstructions: Coronal and sagittal. In accordance with CT protocol optimization, one or more of the following dose reduction techniques were utilized for this exam: automated exposure control, adjustment of mA and/or KV based on patient size, or use of iterative reconstructive technique. FINDINGS: Motion artifact limits evaluation of lung bases and upper abdomen. Lung Bases: Mild basilar atelectasis. Mild cardiac enlargement. Coronary artery calcifications. Moderate-sized hiatal hernia, containing fluid. Liver: Grossly normal (motion artifact). Gallbladder/Bile Ducts: Gallstones without clover acute abnormality or evidence of ductal dilatation. Spleen: Normal. Pancreas: Normal. Adrenal Glands: Normal. Kidneys: Findings consistent with multiple bilateral renal cysts although some are too small to definitively characterize. Largest on the right is 2.7 cm and on the left 6.8 cm. Nonobstructing 5 mm left lower pole calculus. No hydronephrosis, hydroureter or perinephric stranding. Peritoneal Cavity/Bowel: No free fluid, free air or clover adenopathy. Severe colonic diverticulosis without clover diverticulitis. The appendix is well visualized and normal. Dilated stomach and duodenum, primarily with fluid. The duodenum does extend to the midline but then there is some looping or twisting and the duodenal/jejunal junction and the jejunum projects to the right with associated swirling of some vessels consistent with malrotation. Small bowel is decompressed beyond that level. This consistent with obstruction, apparently from malrotation. No lcover pneumatosis intestinalis. Pelvic Organs: Dilated bladder. No clover wall thickening, mass or stone. Prostate appears very small Vasculature: Moderate calcification and tortuous aorta, without aneurysm. Bones: Lumbar scoliosis and extensive degenerative disease. No definite acute abnormality. Other: Cutaneous/subcutaneous 1.1 x 2.3 cm soft tissue nodule to the right of the midline of the lower pelvic wall, below the level of the pubic symphysis. IMPRESSION: 1. GI track obstruction near the level of the duodenum-jejunum junction with associated small bowel malrotation, as discussed above. Substantial fluid dilatation of the stomach and duodenum with some fluid distention of a hiatal hernia. Decompression with nasogastric tube recommended. 2. Mild cardiac enlargement. 3. Dilated bladder. 4. Cutaneous/subcutaneous nodule within the lower anterior pelvic wall. Clinical correlation recommended. 5. Cholelithiasis. 6. Additional chronic findings, as above. EXAM: CT ABDOMEN AND PELVIS EXAM DATE: 03/15/2018 09:46 PM. CLINICAL HISTORY: Per surgeon, rpt with NGT contrast. COMPARISONS: 03/15/2018. TECHNIQUE: Routine helical CT imaging was performed through the abdomen and pelvis. IV contrast: None. Enteric contrast: No. Reconstructions: Coronal and sagittal. In accordance with CT protocol optimization, one or more of the following dose reduction techniques were utilized for this exam: automated exposure control, adjustment of mA and/or KV based on patient size, or use of iterative reconstructive technique. FINDINGS: Lung Bases: Bibasilar opacities and trace left pleural effusion. Moderate paraesophageal hernia. Nasogastric tube is coiled in the lower esophagus. Contrast is present in the paraesophageal hernia and lower esophagus. No pleural or pericardial effusions. Coronary artery calcifications are noted. No significant cardiac enlargement.. Liver: No solid mass or intrahepatic bile duct dilation. Potential exophytic cystic structure adjacent to the posterior right liver, image 26. Gallbladder/Bile Ducts: Multiple gallstones. No gallbladder wall thickening or pericholecystic fluid or common bile duct dilation noted. Spleen: Normal. Pancreas: Normal. Adrenal Glands: Normal. Kidneys: Multiple bilateral renal cysts. Contrast is present in the nondilated renal collecting system. No solid renal mass. Peritoneal Cavity/Bowel: No ascites, pneumoperitoneum, portal venous gas, adenopathy or mass is noted. Oral contrast is noted in the markedly distended stomach and duodenum to the duodenal-jejunal junction. No contrast is seen beyond the duodenum. Persistent high-grade obstruction with swirling of the vessels is noted at the junction of the duodenum and jejunum. As before, diffuse colonic diverticula without large bowel inflammation is noted. No dilated large bowel concerning for obstruction. Pelvic Organs: Moderately distended bladder with multiple bladder diverticula. Possible TURP defect. Mild enlargement of the prostate gland. No pelvic mass or adenopathy. Vasculature: Diffuse atheromatous plaques are present in the abdominal aorta and branch vessels. No aneurysm. Normal IVC. Bones: No osteoblastic or osteolytic lesions are noted. Multilevel degenerative disk disease and facet arthropathy is noted. Other: Persistent subcutaneous nodule in the anterior midline pelvis at the level of the pubic symphysis. IMPRESSION: 1. High-grade obstruction near the jejunum-duodenal junction. Differential includes an internal hernia or adhesions. Swirling of the vessels raises possibility of a volvulus possibly secondary to malrotation. 2. Diverticulosis. No acute inflammation. No obstruction of the large bowel. 3. Cholelithiasis. FULL RESULT: EXAM: Fluoro Independent Procedure DATE: 03/16/2018 10:23 AM CLINICAL HISTORY: ngt placement COMPARISON: None. TECHNIQUE: The fluoroscopy procedure had a fluoroscopy time of 3 minutes 35 seconds. FINDINGS: There are no findings as no images are submitted for review. IMPRESSION: Fluoroscopy procedure without images captured and with no radiologist present. EXAM: Abdomen Acute DATE: 03/17/2018 9:50 AM CLINICAL HISTORY: SBO COMPARISON: Radiograph and CT 03/15/2018. TECHNIQUE: 2 views abdomen and 1 view chest. FINDINGS: CHEST: Lungs/Pleura: No focal opacities. No effusion or pneumothorax. Mediastinum: Within exam limitations, cardiomediastinal contour is normal. ABDOMEN: The exam is limited by the patient's body habitus and technique. Upright chest and abdomen radiographs demonstrates suggestion of free air under the right hemidiaphragm. This is not demonstrated on the previous radiograph or CT 03/15/2018. The bowel gas pattern itself demonstrates a paucity of gas and nonobstructive pattern with gas in the large bowel. IMPRESSION: No bowel obstruction. Limited evaluation with question of interval development of free air. Given limitations in technique, confirmatory repeat abdominal radiographs or if clinically warranted CT abdomen are recommended. ABX Reporting Has patient been on IV antibiotics over the past 48 hours?: No Assessment/Plan - Problem List (1) Small bowel obstruction due to adhesions Impression: The patient is status post laparoscopic resection of jejunum, postop day #2. He has been passing gas and says that his incisional pain is well-managed. We will start refeeding when okay with surgery. (2) Hypertension Impression: Patient has had significant hypertension over the last 48-72 hours. He has not taken oral medications due to nausea and vomiting. We will restart his oral blood pressure medications as he is feeling better and has not had any nausea today, and add a second clonidine patch as the patient's blood pressure is extremely elevated (194/92). Qualifiers: Hypertension type: essential hypertension Qualified Code(s): I10 - Essential (primary) hypertension (3) Hypokalemia Impression: Corrected, potassium level was 3.7 today. Continue present care. 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 His blood sugar was 240 at admission. The patient's latest blood sugar is 152. His hemoglobin A1c was 7.4. He will follow-up with his primary care physician upon discharge.
[2018-03-18] MEDS ORDERED: cloNIDine 0.2 MG PATCH TOP ONE (14:00)
--- NOTE | 2018-03-18 14:06 | PROVIDER PROGRESS NOTE ---
Subjective - General Admit Date: 03/15/18 Procedure Performed: s/p partial small bowel resection - Review of Systems Wound/Incisions: positive: Dressing dry and intact Pulmonary: positive: No symptoms Cardiovascular: positive: No symptoms Gastrointestinal: positive: Flatus, Other (no flatus) Objective - Patient Data Vital Signs: Vital Signs x48h Temp Pulse Resp BP BP Pulse Ox 03/18/18 08:00 36.5 C 64 16 194/92 H 93 03/18/18 06:58 68 170/86 H 03/18/18 06:43 66 158/87 H 03/18/18 06:28 72 186/91 H 03/18/18 06:13 68 184/89 H 03/18/18 06:08 66 185/88 H 03/18/18 06:01 68 185/85 H 03/18/18 05:45 72 185/98 H Intake & Output: Intake and Output Totals x24h 03/16/18 03/17/18 03/18/18 23:59 23:59 23:59 Intake Total 2442.411 0432.667 1050 Output Total 2700 1610 1850 Balance -980.334 36.667 -800 - Lab Results Lab Results: 03/18/18 05:42 03/18/18 05:42 Other Lab Results: Lab Results x24hrs 03/18/18 03/18/18 03/18/18 Range/Units 11:13 05:54 05:42 WBC (4.8-10.8) x10^3/uL RBC (4.70-6.10) 10^6/uL Hgb (14.0-18.0) g/dL Hct (42.0-52.0) % MCV (80.0-94.0) fL MCH (27.0-31.0) pg MCHC (32.0-36.0) g/dL RDW (12.0-15.0) % Plt Count (130-450) 10^3/uL MPV (7.4-11.4) fL Neut # (Auto) (1.5-6.6) 10^3/uL Lymph # (Auto) (1.5-3.5) 10^3/uL [place] # (Auto) (0.0-1.0) 10^3/uL Eos # (Auto) (0.0-0.7) 10^3/uL Baso # (Auto) (0.0-0.1) 10^3/uL Absolute Nucleated RBC x10^3/uL Nucleated RBC % /100WBC Sodium (135-145) mmol/L Potassium (3.5-5.0) mmol/L Chloride (101-111) mmol/L Carbon Dioxide (21-32) mmol/L Anion Gap (6-13) BUN (6-20) mg/dL Creatinine (0.6-1.2) mg/dL Estimated GFR (MDRD) (>89) Glucose (70-100) mg/dL POC Whole Bld Glucose 152 H 188 H (70 - 100) mg/dL Lactic Acid 0.9 (0.5-2.2) mmol/L Calcium (8.5-10.3) mg/dL Phosphorus (2.5-4.6) mg/dL Magnesium (1.7-2.8) mg/dL Total Bilirubin (0.2-1.0) mg/dL AST (10-42) IU/L ALT (10-60) IU/L Alkaline Phosphatase (42-121) IU/L Total Protein (6.7-8.2) g/dL Albumin (3.2-5.5) g/dL Globulin (2.1-4.2) g/dL Albumin/Globulin Ratio (1.0-2.2) 03/18/18 03/18/18 03/17/18 Range/Units 05:42 05:42 23:34 WBC 8.1 (4.8-10.8) x10^3/uL RBC 4.16 L (4.70-6.10) 10^6/uL Hgb 13.9 L (14.0-18.0) g/dL Hct 41.7 L (42.0-52.0) % MCV 100.3 H (80.0-94.0) fL MCH 33.4 H (27.0-31.0) pg MCHC 33.3 (32.0-36.0) g/dL RDW 13.0 (12.0-15.0) % Plt Count 126 L (130-450) 10^3/uL MPV 9.1 (7.4-11.4) fL Neut # (Auto) 5.6 (1.5-6.6) 10^3/uL Lymph # (Auto) 1.6 (1.5-3.5) 10^3/uL [place] # (Auto) 0.9 (0.0-1.0) 10^3/uL Eos # (Auto) 0.0 (0.0-0.7) 10^3/uL Baso # (Auto) 0.0 (0.0-0.1) 10^3/uL Absolute Nucleated RBC 0.01 x10^3/uL Nucleated RBC % 0.1 /100WBC Sodium 139 (135-145) mmol/L Potassium 3.7 (3.5-5.0) mmol/L Chloride 108 (101-111) mmol/L Carbon Dioxide 26 (21-32) mmol/L Anion Gap 5.0 L (6-13) BUN 23 H (6-20) mg/dL Creatinine 0.7 (0.6-1.2) mg/dL Estimated GFR (MDRD) 106 (>89) Glucose 195 H (70-100) mg/dL POC Whole Bld Glucose 159 H (70 - 100) mg/dL Lactic Acid (0.5-2.2) mmol/L Calcium 8.1 L (8.5-10.3) mg/dL Phosphorus 1.4 L (2.5-4.6) mg/dL Magnesium 1.9 (1.7-2.8) mg/dL Total Bilirubin 1.3 H (0.2-1.0) mg/dL AST 19 (10-42) IU/L ALT 16 (10-60) IU/L Alkaline Phosphatase 49 (42-121) IU/L Total Protein 5.2 L (6.7-8.2) g/dL Albumin 2.7 L (3.2-5.5) g/dL Globulin 2.5 (2.1-4.2) g/dL Albumin/Globulin Ratio 1.1 (1.0-2.2) //18 Range/Units 18:35 WBC (4.8-10.8) x10^3/uL RBC (4.70-6.10) 10^6/uL Hgb (14.0-18.0) g/dL Hct (42.0-52.0) % MCV (80.0-94.0) fL MCH (27.0-31.0) pg MCHC (32.0-36.0) g/dL RDW (12.0-15.0) % Plt Count (130-450) 10^3/uL MPV (7.4-11.4) fL Neut # (Auto) (1.5-6.6) 10^3/uL Lymph # (Auto) (1.5-3.5) 10^3/uL [place] # (Auto) (0.0-1.0) 10^3/uL Eos # (Auto) (0.0-0.7) 10^3/uL Baso # (Auto) (0.0-0.1) 10^3/uL Absolute Nucleated RBC x10^3/uL Nucleated RBC % /100WBC Sodium (135-145) mmol/L Potassium (3.5-5.0) mmol/L Chloride (101-111) mmol/L Carbon Dioxide (21-32) mmol/L Anion Gap (6-13) BUN (6-20) mg/dL Creatinine (0.6-1.2) mg/dL Estimated GFR (MDRD) (>89) Glucose (70-100) mg/dL POC Whole Bld Glucose 229 H (70 - 100) mg/dL Lactic Acid (0.5-2.2) mmol/L Calcium (8.5-10.3) mg/dL Phosphorus (2.5-4.6) mg/dL Magnesium (1.7-2.8) mg/dL Total Bilirubin (0.2-1.0) mg/dL AST (10-42) IU/L ALT (10-60) IU/L Alkaline Phosphatase (42-121) IU/L Total Protein (6.7-8.2) g/dL Albumin (3.2-5.5) g/dL Globulin (2.1-4.2) g/dL Albumin/Globulin Ratio (1.0-2.2) - Current Medications Current Medications: Current Medications Generic Name Dose Route Start Last Admin Trade Name Freq PRN Reason Stop Dose Admin Enalaprilat 1.25 mg 03/16/18 00:00 03/18/18 11:53 Vasotec Inj IVP 1.25 mg Q6HR BONIFACIO Administration Enoxaparin Sodium 40 mg 03/17/18 09:00 03/18/18 08:32 Lovenox SUBQ Not Given DAILY [facility] Potassium Chloride/Dextrose/Sod Cl 1,000 mls @ 100 mls/hr 03/15/18 20:00 04:15 IV 100 mls/hr .Q10H BONIFACIO Administration Famotidine 50 mls @ 100 mls/hr 03/15/18 21:00 03/18/18 08:43 Pepcid 20 Mg/50 Ml IV Infused BID BONIFACIO Infusion Insulin Human Regular 1 - 9 unit 03/17/18 12:00 03/18/18 11:47 Novolin R SUBQ Not Given Q6HR [facility] Protocol Latanoprost 1 drops 03/16/18 21:00 03/17/18 21:40 Xalatan Ophth Drops RIGHTEYE 1 drops QPM BONIFACIO Administration Sodium Chloride 10 ml 03/15/18 19:59 03/18/18 05:53 Normal Saline Flush 0.9% IVP 20 ml PRN PRN Administration NEEDED PER PROVIDER ORDERS Sodium Chloride 10 ml 03/16/18 01:00 03/18/18 08:32 Normal Saline Flush 0.9% IVP Not Given 0100,0900,1700 [facility] - Physical Exam Respiratory: positive: No respiratory distress Cardiovascular: positive: Regular rate & rhythm Abdomen: positive: Other (incision clean without evidence of infection) Rectal: positive: Other (stool in vault) Impression/Plan - Problem List Problem List: s/p partial small bowel resection for obstruction POD#2. Unable to void with mendenhall replaced. Flomax when taking oral. Start liquids in am. Ambulate with PT.
--- NOTE | 2018-03-18 16:11 | XRAY Report ---
Procedure Date: 03/18/2018 Accession Number: [id number] / [id number] Procedure: XR - Abdomen Acute CPT Code: FULL RESULT: EXAM: Abdomen Acute DATE: 03/18/2018 4:00 PM CLINICAL HISTORY: SBO COMPARISON: 03/17/2018. TECHNIQUE: 2 views abdomen and 1 view chest. FINDINGS: CHEST: Lungs/Pleura: No focal opacities. No effusion or pneumothorax. Mediastinum: Within exam limitations, cardiomediastinal contour is normal. ABDOMEN: Bowel Gas Pattern: The bowel gas pattern is nonobstructed. Free Air: Free air underneath the right hemidiaphragm is again seen, increased in amount and there is now a continuous diaphragm sign was free air also noted the left hemidiaphragm. Other: Surgical tyrese are again seen. IMPRESSION: Confirmation of free air, increased on today's exam. RADIA
[2018-03-18] MEDS: PANTOPRAZOLE 40 MG TABLET PO SCH (16:12)
[2018-03-18] MEDS: ATORVASTATIN 10 MG TABLET PO SCH (20:23)
[2018-03-18] MEDS: PRIMIDONE 50 MG TABLET PO SCH (20:23)
[2018-03-18] MEDS: LATANOPROST 0.005% OPHTH DROPS RIGHTEYE SCH (20:23)
[2018-03-18] MEDS: TERAZOSIN 1 MG CAPSULE PO SCH (20:24)
[2018-03-19] MEDS: ENALAPRILAT 1.25 MG/ML VIAL IVP SCH ×5 (01:13→23:42)
[2018-03-19] MEDS: INSULIN REGULAR HUMAN 100 UNIT/1 ML 10 ML MDV SUBQ SCH ×4 (01:13→18:08)
[2018-03-19] MEDS: SODIUM CHLORIDE FLUSH 0.9% 10 ML SYRINGE IVP SCH ×3 (01:14→16:24)
[2018-03-19] MEDS: SODIUM CHLORIDE FLUSH 0.9% 10 ML SYRINGE IVP PRN ×5 (02:30→18:11)
[2018-03-19] MEDS: hydrALAZINE INJ 20 MG/ML VIAL IVP SCH ×3 (02:31→18:10)
[2018-03-19 05:18] LABS: BASOPHILS % (AUTO) 0.3 %; EOSINOPHILS # (AUTO) 0.2 10^3/uL (0.0-0.7); EOSINOPHILS % (AUTO) 2.1 %; LYMPHOCYTES # (AUTO) 1.8 10^3/uL (1.5-3.5); LYMPHOCYTES % (AUTO) 19.8 %; MEAN CORPUSCULAR HEMOGLOBIN 33.3 pg (27.0-31.0); MEAN CORPUSCULAR VOLUME 101.1 fL (80.0-94.0); MEAN PLATELET VOLUME 9.5 fL (7.4-11.4); MONOCYTES # (AUTO) 0.9 10^3/uL (0.0-1.0); MONOCYTES % (AUTO) 10.5 %; NEUTROPHILS % (AUTO) 67.3 %; PLT - PLATELET COUNT 133 10^3/uL (130-450)
[2018-03-19 05:31] LABS: ALBUMIN 3.1 g/dL (3.2-5.5); ALBUMIN/GLOBULIN RATIO 1.2 (1.0-2.2); BILIRUBIN,TOTAL 1.8 mg/dL (0.2-1.0); CALCIUM 8.3 mg/dL (8.5-10.3); CREATININE 0.7 mg/dL (0.6-1.2); MAGNESIUM 1.8 mg/dL (1.7-2.8); PHOSPHORUS 1.6 mg/dL (2.5-4.6); TOTAL PROTEIN 5.6 g/dL (6.7-8.2)
[2018-03-19] MEDS: D5NS W/20 MEQ KCL 1,000 ML IV SCH ×3 (05:43→17:37)
[2018-03-19] MEDS: PANTOPRAZOLE 40 MG TABLET PO SCH ×2 (06:55→16:38)
[2018-03-19] MEDS: PRIMIDONE 50 MG TABLET PO SCH ×2 (08:54→20:39)
[2018-03-19] MEDS: LOSARTAN 50 MG TABLET PO SCH (08:54)
[2018-03-19] MEDS: ENOXAPARIN 40 MG/0.4 ML SYRINGE SUBQ SCH (08:54)
[2018-03-19] MEDS: FAMOTIDINE 20 MG/50 ML 50 ML IV SCH ×2 (08:55→20:39)
[2018-03-19] MEDS ORDERED: hydroCHLOROthiazide 12.5 MG CAPSULE PO SCH ×2 (09:00→11:00)
--- NOTE | 2018-03-19 09:04 | XRAY Report ---
Procedure Date: 03/19/2018 Accession Number: [id number] / [id number] Procedure: XR - Abdomen Acute CPT Code: FULL RESULT: EXAM: Abdomen Acute DATE: 03/19/2018 8:51 AM CLINICAL HISTORY: SBO COMPARISON: 03/18/2018 and previous plain radiographs. TECHNIQUE: 2 views abdomen and 1 view chest. FINDINGS: CHEST: Lungs/Pleura: No focal opacities. Stable small left pleural effusion, no pneumothorax. Mediastinum: Within exam limitations, cardiomediastinal contour is stable. ABDOMEN: Bowel Gas Pattern: Gas is seen in loops of small bowel and large bowel without fluid fluid levels to suggest obstruction. Nonobstructive bowel gas pattern. Free Air: Redemonstration of gross free air in the peritoneal cavity. Other: None. IMPRESSION: Persistent gross free gas in the peritoneal cavity. Nonobstructive bowel gas pattern. RADIA
--- NOTE | 2018-03-19 15:10 | PROVIDER PROGRESS NOTE ---
Subjective - Prog Note Date Prog Note Date: 03/19/18 Prog Note Time: 11:30 - Subjective Pt reports feeling: Improved Subjective: The patient says he feels better. He is on clear liquid diet but did have a large bowel movement last night. He says his pain is very well-managed. He denies any shortness of breath, fevers, chills, or any other new problems. Current Medications - Current Medications Current Medications: Active Medications Generic Name Dose Route Start Last Admin Trade Name Freq PRN Reason Stop Dose Admin Atorvastatin Calcium 10 mg 03/18/18 21:00 03/18/18 20:23 Lipitor PO 10 mg QPM BONIFACIO Administration Clonidine HCl 2 patch 03/25/18 09:00 [id number] TOP Q7D BONIFACIO Enalaprilat 1.25 mg 03/16/18 00:00 03/19/18 12:32 Vasotec Inj IVP 1.25 mg Q6HR BONIFACIO Administration Enoxaparin Sodium 40 mg 03/17/18 09:00 03/19/18 08:54 Lovenox SUBQ 40 mg DAILY BONIFACIO Administration Hydralazine HCl 10 mg 03/19/18 02:00 03/19/18 10:36 Apresoline Inj IVP 10 mg Q8H BONIFACIO Administration Hydrochlorothiazide 25 mg 03/20/18 09:00 Hydrodiuril PO DAILY BONIFACIO Hydromorphone HCl 1 mg 03/16/18 11:49 Dilaudid Inj Carp IVP Q2H PRN PAIN Hydromorphone HCl 0.5 mg 03/16/18 11:49 Dilaudid Inj Syringe IVP Q2H PRN PAIN Potassium Chloride/Dextrose/Sod Cl 1,000 mls @ 100 mls/hr 03/15/18 20:00 09/05 12:37 IV 100 mls/hr .Q10H BONIFACIO Infusion Famotidine 50 mls @ 100 mls/hr 03/15/18 21:00 03/19/18 09:25 Pepcid 20 Mg/50 Ml IV Infused BID BONIFACIO Infusion Insulin Human Regular 1 - 9 unit 03/17/18 12:00 03/19/18 11:36 Novolin R SUBQ 5 unit Q6HR BONIFACIO Administration Protocol Latanoprost 1 drops 03/16/18 21:00 03/18/18 20:23 Xalatan Ophth Drops RIGHTEYE 1 drops QPM BONIFACIO Administration Losartan Potassium 100 mg 03/19/18 09:00 03/19/18 08:54 Cozaar PO 100 mg DAILY BONIFACIO Administration Morphine Sulfate 2 mg 03/15/18 19:59 Morphine IVP Q2H PRN Pain 8 to 10 Ondansetron HCl 4 mg 03/15/18 19:59 Zofran Inj IVP Q6HR PRN Nausea / Vomiting Pantoprazole Sodium 40 mg 03/18/18 16:00 03/19/18 06:55 Protonix PO 40 mg BIDAC BONIFACIO Administration Primidone 100 mg 03/18/18 21:00 03/19/18 08:54 Mysoline PO 100 mg BID BONIFACIO Administration Prochlorperazine Edisylate 10 mg 03/15/18 19:59 Compazine Inj IVP Q6HR PRN Nausea / Vomiting Promethazine HCl 25 mg 03/15/18 19:59 Phenergan Inj IM Q6HR PRN Nausea / Vomiting Sodium Chloride 10 ml 03/15/18 19:59 03/19/18 12:37 Normal Saline Flush 0.9% IVP 10 ml PRN PRN Administration NEEDED PER PROVIDER ORDERS Sodium Chloride 10 ml 03/16/18 01:00 03/19/18 08:55 Normal Saline Flush 0.9% IVP 10 ml 0100,0900,1700 BONIFACIO Administration Terazosin HCl 2 mg 03/18/18 21:00 03/18/18 20:24 Hytrin PO Not Given QPM [facility] Zolpidem Tartrate 5 mg 03/18/18 13:05 Ambien PO QPM PRN Insomnia Aspirin 325 mg PO DAILY 03/15/18 Latanoprost 0.005% Ophth Drops [Xalatan Ophth Drops] 1 drops RIGHTEYE QPM Losartan/Hydrochlorothiazide [Losartan-Hctz 100-12.5 mg Tab] 1 tab PO DAILY Omeprazole 20 mg PO BID 03/15/18 Primidone 100 mg PO BID 03/15/18 Simvastatin 20 mg PO QPM 03/15/18 Terazosin [Hytrin] 2 mg PO QPM 03/15/18 Zolpidem [Ambien] 5 mg PO QPM PRN 03/15/18 Objective - Vital Signs/Intake & Output Reviewed Vital Signs: Yes Vital Signs: Vital Signs x48h Temp Pulse Resp BP BP BP Pulse Ox 03/19/18 13:30 73 149/77 H 03/19/18 13:15 76 148/71 H 03/19/18 13:00 79 147/73 H 03/19/18 12:50 80 151/66 H 03/19/18 12:45 79 152/73 H 96 03/19/18 12:38 82 158/64 H 03/19/18 12:29 82 158/65 H 96 03/19/18 11:08 161/85 H 03/19/18 10:55 68 171/82 H 03/19/18 10:47 66 164/87 H 03/19/18 10:43 63 181/79 H 98 03/19/18 10:36 177/92 H 03/19/18 10:34 68 177/92 H 03/19/18 07:35 36.6 C 72 20 151/83 H 95 Intake & Output: Intake & Output 03/16/18 03/17/18 03/18/18 03/19/18 23:59 23:59 23:59 23:59 Intake Total 2241.421 8882.667 2100 2628.333 Output Total 2700 1610 2600 2850 Balance -980.334 36.667 -500 -221.667 - Objective General Appearance: positive: No acute distress, Alert Eyes Bilateral: positive: Normal inspection, PERRL, EOMI, No lid inflammation, Conjunctivae nml, No scleral icterus ENT: positive: ENT inspection nml, Pharynx nml, No signs of dehydration Neck: positive: Nml inspection, Thyroid nml, No JVD, Trachea midline. negative : Thyromegaly Respiratory: positive: Chest non-tender, No respiratory distress, Breath sounds nml. negative: Wheezes, Rales, Rhonchi Cardiovascular: positive: Regular rate & rhythm, No murmur, No gallop Abdomen: positive: Non-tender, No organomegaly, Nml bowel sounds, No distention. negative: Guarding, Rebound, Mass Back: positive: Nml inspection. negative: CVA tenderness (R), CVA tenderness (L ) Skin: positive: Color nml, No rash, Warm, Dry. negative: Cyanosis Extremities: positive: Non-tender, Full ROM, Nml appearance, No pedal edema Neurologic/Psychiatric: positive: Oriented x3, CN's nml (2-12), Motor nml, Sensation nml, Mood/affect nml - Lab Results Fish Bones: 03/19/18 04:55 03/19/18 04:55 Other Labs: Lab Results x24hrs 03/19/18 03/19/18 03/19/18 Range/Units 11:09 05:51 04:55 WBC (4.8-10.8) x10^3/uL RBC (4.70-6.10) 10^6/uL Hgb (14.0-18.0) g/dL Hct (42.0-52.0) % MCV (80.0-94.0) fL MCH (27.0-31.0) pg MCHC (32.0-36.0) g/dL RDW (12.0-15.0) % Plt Count (130-450) 10^3/uL MPV (7.4-11.4) fL Neut # (Auto) (1.5-6.6) 10^3/uL Lymph # (Auto) (1.5-3.5) 10^3/uL [place] # (Auto) (0.0-1.0) 10^3/uL Eos # (Auto) (0.0-0.7) 10^3/uL Baso # (Auto) (0.0-0.1) 10^3/uL Absolute Nucleated RBC x10^3/uL Nucleated RBC % /100WBC Sodium 137 (135-145) mmol/L Potassium 3.4 L (3.5-5.0) mmol/L Chloride 107 (101-111) mmol/L Carbon Dioxide 25 (21-32) mmol/L Anion Gap 5.0 L (6-13) BUN 14 (6-20) mg/dL Creatinine 0.7 (0.6-1.2) mg/dL Estimated GFR (MDRD) 106 (>89) Glucose 194 H (70-100) mg/dL POC Whole Bld Glucose 228 H 177 H (70 - 100) mg/dL Calcium 8.3 L (8.5-10.3) mg/dL Phosphorus 1.6 L (2.5-4.6) mg/dL Magnesium 1.8 (1.7-2.8) mg/dL Total Bilirubin 1.8 H (0.2-1.0) mg/dL AST 24 (10-42) IU/L ALT 22 (10-60) IU/L Alkaline Phosphatase 59 (42-121) IU/L Total Protein 5.6 L (6.7-8.2) g/dL Albumin 3.1 L (3.2-5.5) g/dL Globulin 2.5 (2.1-4.2) g/dL Albumin/Globulin Ratio 1.2 (1.0-2.2) 03/19/18 03/19/18 03/18/18 Range/Units 04:55 00:23 18:03 WBC 9.0 (4.8-10.8) x10^3/uL RBC 4.50 L (4.70-6.10) 10^6/uL Hgb 15.0 (14.0-18.0) g/dL Hct 45.5 (42.0-52.0) % MCV 101.1 H (80.0-94.0) fL MCH 33.3 H (27.0-31.0) pg MCHC 33.0 (32.0-36.0) g/dL RDW 13.0 (12.0-15.0) % Plt Count 133 (130-450) 10^3/uL MPV 9.5 (7.4-11.4) fL Neut # (Auto) 6.0 (1.5-6.6) 10^3/uL Lymph # (Auto) 1.8 (1.5-3.5) 10^3/uL [place] # (Auto) 0.9 (0.0-1.0) 10^3/uL Eos # (Auto) 0.2 (0.0-0.7) 10^3/uL Baso # (Auto) 0.0 (0.0-0.1) 10^3/uL Absolute Nucleated RBC 0.00 x10^3/uL Nucleated RBC % 0.0 /100WBC Sodium (135-145) mmol/L Potassium (3.5-5.0) mmol/L Chloride (101-111) mmol/L Carbon Dioxide (21-32) mmol/L Anion Gap (6-13) BUN (6-20) mg/dL Creatinine (0.6-1.2) mg/dL Estimated GFR (MDRD) (>89) Glucose (70-100) mg/dL POC Whole Bld Glucose 152 H 182 H (70 - 100) mg/dL Calcium (8.5-10.3) mg/dL Phosphorus (2.5-4.6) mg/dL Magnesium (1.7-2.8) mg/dL Total Bilirubin (0.2-1.0) mg/dL AST (10-42) IU/L ALT (10-60) IU/L Alkaline Phosphatase (42-121) IU/L Total Protein (6.7-8.2) g/dL Albumin (3.2-5.5) g/dL Globulin (2.1-4.2) g/dL Albumin/Globulin Ratio (1.0-2.2) - Diagnostic Imaging Diagnostic Imaging Results: positive: Final report reviewed Diagnostic Imaging Comments: EXAM: Abdomen Acute DATE: 03/17/2018 9:50 AM CLINICAL HISTORY: SBO COMPARISON: Radiograph and CT 03/15/2018. TECHNIQUE: 2 views abdomen and 1 view chest. FINDINGS: CHEST: Lungs/Pleura: No focal opacities. No effusion or pneumothorax. Mediastinum: Within exam limitations, cardiomediastinal contour is normal. ABDOMEN: The exam is limited by the patient's body habitus and technique. Upright chest and abdomen radiographs demonstrates suggestion of free air under the right hemidiaphragm. This is not demonstrated on the previous radiograph or CT 03/15/2018. The bowel gas pattern itself demonstrates a paucity of gas and nonobstructive pattern with gas in the large bowel. IMPRESSION: No bowel obstruction. Limited evaluation with question of interval development of free air. Given limitations in technique, confirmatory repeat abdominal radiographs or if clinically warranted CT abdomen are recommended. EXAM: Abdomen Acute DATE: 03/18/2018 4:00 PM CLINICAL HISTORY: SBO COMPARISON: 03/17/2018. TECHNIQUE: 2 views abdomen and 1 view chest. FINDINGS: CHEST: Lungs/Pleura: No focal opacities. No effusion or pneumothorax. Mediastinum: Within exam limitations, cardiomediastinal contour is normal. ABDOMEN: Bowel Gas Pattern: The bowel gas pattern is nonobstructed. Free Air: Free air underneath the right hemidiaphragm is again seen, increased in amount and there is now a continuous diaphragm sign was free air also noted the left hemidiaphragm. Other: Surgical tyrese are again seen. IMPRESSION: Confirmation of free air, increased on today's exam. EXAM: Abdomen Acute DATE: 03/19/2018 8:51 AM CLINICAL HISTORY: SBO COMPARISON: 03/18/2018 and previous plain radiographs. TECHNIQUE: 2 views abdomen and 1 view chest. FINDINGS: CHEST: Lungs/Pleura: No focal opacities. Stable small left pleural effusion, no pneumothorax. Mediastinum: Within exam limitations, cardiomediastinal contour is stable. ABDOMEN: Bowel Gas Pattern: Gas is seen in loops of small bowel and large bowel without fluid fluid levels to suggest obstruction. Nonobstructive bowel gas pattern. Free Air: Redemonstration of gross free air in the peritoneal cavity. Other: None. IMPRESSION: Persistent gross free gas in the peritoneal cavity. Nonobstructive bowel gas pattern. ABX Reporting Has patient been on IV antibiotics over the past 48 hours?: No Assessment/Plan - Problem List (1) Small bowel obstruction due to adhesions Impression: The patient is status post laparoscopic resection of jejunum, postop day #3. He has been passing gas and had a large bowel movement last night and says that his incisional pain is well-managed. He was started on clear liquids this morning, and has tolerated them well so far. We will discharge home when okay with surgery. (2) Hypertension Impression: Patient has had significant hypertension over the last 48-72 hours. He has not taken oral medications due to nausea and vomiting. We restarted his oral blood pressure medications yesterday and added a second clonidine patch as the patient 's blood pressure was extremely elevated (194/92). Despite this the patient's blood pressure was still elevated and last night Dr. Goel added hydralazine to the patient's medication regimen. His blood pressures have been better today but are still greater than normal. Qualifiers: Hypertension type: essential hypertension Qualified Code(s): I10 - Essential (primary) hypertension (3) Hypokalemia Impression: The patient's hypokalemia has been corrected. (4) Hyperglycemia Impression: The patient's blood sugars have been consistently above 150. He is not on a diabetic diet. A hemoglobin A1c was done to check his typical glycemic status, And was elevated at 7.4. The patient has been placed on and insulin sliding scale for coverage and will follow up with his primary care physician upon discharge for better glycemic control.
[2018-03-19] MEDS: ATORVASTATIN 10 MG TABLET PO SCH (20:39)
[2018-03-19] MEDS: LATANOPROST 0.005% OPHTH DROPS RIGHTEYE SCH (20:39)
[2018-03-19] MEDS: TERAZOSIN 1 MG CAPSULE PO SCH (21:03)
[2018-03-19] MEDS ORDERED: D5NS W/20 MEQ KCL 1,000 ML IV SCH (21:15)
[2018-03-19] MEDS ORDERED: hydrALAZINE INJ 20 MG/ML VIAL IVP SCH (22:00)
[2018-03-19] MEDS ORDERED: POTASSIUM PHOSPHATE 15 MMOL in SODIUM CHLORIDE 0.9% 250 ML IV SCH (22:00)
[2018-03-19] MEDS ORDERED: SODIUM PHOSPHATE 20 MMOL in SODIUM CHLORIDE 0.9% 250 ML IV SCH (22:56)
--- NOTE | 2018-03-19 23:17 | PROVIDER PROGRESS NOTE ---
Subjective - General Admit Date: 03/15/18 Procedure Date: 03/16/18 Post Op Days: 3 Procedure Performed: s/p partial small bowel resection - Review of Systems Wound/Incisions: positive: Dressing dry and intact General: positive: No symptoms Pulmonary: positive: No symptoms Cardiovascular: positive: No symptoms Gastrointestinal: positive: Flatus, Other (Bowel movement.) Objective - Patient Data Reviewed Vital Signs: Yes Vital Signs: Vital Signs x48h Temp Pulse Resp BP BP BP Pulse Ox 03/19/18 18:46 78 160/80 H 03/19/18 18:30 81 165/69 H 03/19/18 18:15 77 166/78 H 03/19/18 18:10 167/90 H 03/19/18 18:05 78 167/90 H 03/19/18 17:50 80 179/77 H 03/19/18 17:45 82 16 154/80 H 97 03/19/18 17:40 82 171/94 H 03/19/18 17:35 83 162/83 H 03/19/18 15:55 36.6 C 71 18 160/82 H 94 Intake & Output: Intake and Output Totals x24h 03/17/18 03/18/18 03/19/18 23:59 23:59 23:59 Intake Total 4176.218 0747 3991.666 Output Total 1610 2600 2850 Balance 36.667 -500 1141.666 - Lab Results Lab Results: 03/19/18 04:55 03/19/18 04:55 Other Lab Results: Lab Results x24hrs 03/19/18 03/19/18 03/19/18 Range/Units 21:11 16:50 11:09 WBC (4.8-10.8) x10^3/uL RBC (4.70-6.10) 10^6/uL Hgb (14.0-18.0) g/dL Hct (42.0-52.0) % MCV (80.0-94.0) fL MCH (27.0-31.0) pg MCHC (32.0-36.0) g/dL RDW (12.0-15.0) % Plt Count (130-450) 10^3/uL MPV (7.4-11.4) fL Neut # (Auto) (1.5-6.6) 10^3/uL Lymph # (Auto) (1.5-3.5) 10^3/uL [place] # (Auto) (0.0-1.0) 10^3/uL Eos # (Auto) (0.0-0.7) 10^3/uL Baso # (Auto) (0.0-0.1) 10^3/uL Absolute Nucleated RBC x10^3/uL Nucleated RBC % /100WBC Sodium (135-145) mmol/L Potassium (3.5-5.0) mmol/L Chloride (101-111) mmol/L Carbon Dioxide (21-32) mmol/L Anion Gap (6-13) BUN (6-20) mg/dL Creatinine (0.6-1.2) mg/dL Estimated GFR (MDRD) (>89) Glucose (70-100) mg/dL POC Whole Bld Glucose 200 H 179 H 228 H (70 - 100) mg/dL Calcium (8.5-10.3) mg/dL Phosphorus (2.5-4.6) mg/dL Magnesium (1.7-2.8) mg/dL Total Bilirubin (0.2-1.0) mg/dL AST (10-42) IU/L ALT (10-60) IU/L Alkaline Phosphatase (42-121) IU/L Total Protein (6.7-8.2) g/dL Albumin (3.2-5.5) g/dL Globulin (2.1-4.2) g/dL Albumin/Globulin Ratio (1.0-2.2) 03/19/18 03/19/18 03/19/18 Range/Units 05:51 04:55 04:55 WBC 9.0 (4.8-10.8) x10^3/uL RBC 4.50 L (4.70-6.10) 10^6/uL Hgb 15.0 (14.0-18.0) g/dL Hct 45.5 (42.0-52.0) % MCV 101.1 H (80.0-94.0) fL MCH 33.3 H (27.0-31.0) pg MCHC 33.0 (32.0-36.0) g/dL RDW 13.0 (12.0-15.0) % Plt Count 133 (130-450) 10^3/uL MPV 9.5 (7.4-11.4) fL Neut # (Auto) 6.0 (1.5-6.6) 10^3/uL Lymph # (Auto) 1.8 (1.5-3.5) 10^3/uL [place] # (Auto) 0.9 (0.0-1.0) 10^3/uL Eos # (Auto) 0.2 (0.0-0.7) 10^3/uL Baso # (Auto) 0.0 (0.0-0.1) 10^3/uL Absolute Nucleated RBC 0.00 x10^3/uL Nucleated RBC % 0.0 /100WBC Sodium 137 (135-145) mmol/L Potassium 3.4 L (3.5-5.0) mmol/L Chloride 107 (101-111) mmol/L Carbon Dioxide 25 (21-32) mmol/L Anion Gap 5.0 L (6-13) BUN 14 (6-20) mg/dL Creatinine 0.7 (0.6-1.2) mg/dL Estimated GFR (MDRD) 106 (>89) Glucose 194 H (70-100) mg/dL POC Whole Bld Glucose 177 H (70 - 100) mg/dL Calcium 8.3 L (8.5-10.3) mg/dL Phosphorus 1.6 L (2.5-4.6) mg/dL Magnesium 1.8 (1.7-2.8) mg/dL Total Bilirubin 1.8 H (0.2-1.0) mg/dL AST 24 (10-42) IU/L ALT 22 (10-60) IU/L Alkaline Phosphatase 59 (42-121) IU/L Total Protein 5.6 L (6.7-8.2) g/dL Albumin 3.1 L (3.2-5.5) g/dL Globulin 2.5 (2.1-4.2) g/dL Albumin/Globulin Ratio 1.2 (1.0-2.2) 03/19/18 Range/Units 00:23 WBC (4.8-10.8) x10^3/uL RBC (4.70-6.10) 10^6/uL Hgb (14.0-18.0) g/dL Hct (42.0-52.0) % MCV (80.0-94.0) fL MCH (27.0-31.0) pg MCHC (32.0-36.0) g/dL RDW (12.0-15.0) % Plt Count (130-450) 10^3/uL MPV (7.4-11.4) fL Neut # (Auto) (1.5-6.6) 10^3/uL Lymph # (Auto) (1.5-3.5) 10^3/uL [place] # (Auto) (0.0-1.0) 10^3/uL Eos # (Auto) (0.0-0.7) 10^3/uL Baso # (Auto) (0.0-0.1) 10^3/uL Absolute Nucleated RBC x10^3/uL Nucleated RBC % /100WBC Sodium (135-145) mmol/L Potassium (3.5-5.0) mmol/L Chloride (101-111) mmol/L Carbon Dioxide (21-32) mmol/L Anion Gap (6-13) BUN (6-20) mg/dL Creatinine (0.6-1.2) mg/dL Estimated GFR (MDRD) (>89) Glucose (70-100) mg/dL POC Whole Bld Glucose 152 H (70 - 100) mg/dL Calcium (8.5-10.3) mg/dL Phosphorus (2.5-4.6) mg/dL Magnesium (1.7-2.8) mg/dL Total Bilirubin (0.2-1.0) mg/dL AST (10-42) IU/L ALT (10-60) IU/L Alkaline Phosphatase (42-121) IU/L Total Protein (6.7-8.2) g/dL Albumin (3.2-5.5) g/dL Globulin (2.1-4.2) g/dL Albumin/Globulin Ratio (1.0-2.2) - Current Medications Current Medications: Current Medications Generic Name Dose Route Start Last Admin Trade Name Freq PRN Reason Stop Dose Admin Atorvastatin Calcium 10 mg 03/18/18 21:00 03/19/18 20:39 Lipitor PO 10 mg QPM BONIFACIO Administration Enalaprilat 1.25 mg 03/16/18 00:00 03/19/18 17:37 Vasotec Inj IVP 1.25 mg Q6HR BONIFACIO Administration Enoxaparin Sodium 40 mg 03/17/18 09:00 03/19/18 08:54 Lovenox SUBQ 40 mg DAILY BONIFACIO Administration Famotidine 50 mls @ 100 mls/hr 03/15/18 21:00 03/19/18 21:09 Pepcid 20 Mg/50 Ml IV Infused BID BONIFACIO Infusion Potassium Chloride/Dextrose/Sod Cl 1,000 mls @ 40 mls/hr 03/19/18 21:15 03/19 22:50 IV Not Given .Q25H BONIFACIO Latanoprost 1 drops 03/16/18 21:00 03/19/18 20:39 Xalatan Ophth Drops RIGHTEYE 1 drops QPM BONIFACIO Administration Losartan Potassium 100 mg 03/19/18 09:00 03/19/18 08:54 Cozaar PO 100 mg DAILY BONIFACIO Administration Pantoprazole Sodium 40 mg 03/18/18 16:00 03/19/18 16:38 Protonix PO 40 mg BIDAC BONIFACIO Administration Primidone 100 mg 03/18/18 21:00 03/19/18 20:39 Mysoline PO 100 mg BID BONIFACIO Administration Sodium Chloride 10 ml 03/15/18 19:59 03/19/18 18:11 Normal Saline Flush 0.9% IVP 10 ml PRN PRN Administration NEEDED PER PROVIDER ORDERS Sodium Chloride 10 ml 03/16/18 01:00 03/19/18 16:24 Normal Saline Flush 0.9% IVP Not Given 0100,0900,1700 BONIFACIO Terazosin HCl 2 mg 03/18/18 21:00 03/19/18 21:03 Hytrin PO Not Given QPM BONIFACIO - Physical Exam Wound/Incisions: positive: Healing well General Appearance: positive: No acute distress Eyes Bilateral: positive: No lid inflammation, Conjunctivae nml, No scleral icterus, Other (Glasses.) ENT: positive: No signs of dehydration Neck: positive: Trachea midline Respiratory: positive: Chest non-tender Cardiovascular: positive: Regular rate & rhythm Abdomen: positive: Nml bowel sounds, No distention Neurologic/Psychiatric: positive: Oriented x3 Impression/Plan - Problem List Problem List: D3 s/p small bowel resection with anastamosis Patient has now passed gas and had a bowel movement. Will start general diet and if tolerated will look to discharge patient. Continue to increase ambulation with help of PT.
[2018-03-19] MEDS ORDERED: NEUTRA-PHOS 250 MG TABLET PO ONE (23:58)
[2018-03-20] MEDS: POTASSIUM CHLOR 10 MEQ/100 ML 10 MEQ/100 ML BAG IV SCH ×3 (00:05→01:59)
[2018-03-20] MEDS: SODIUM CHLORIDE FLUSH 0.9% 10 ML SYRINGE IVP SCH ×2 (00:32→08:05)
[2018-03-20] MEDS: hydrALAZINE INJ 20 MG/ML VIAL IVP SCH ×2 (02:01→10:27)
[2018-03-20 04:56] LABS: BASOPHILS % (AUTO) 0.5 %; EOSINOPHILS # (AUTO) 0.3 10^3/uL (0.0-0.7); EOSINOPHILS % (AUTO) 2.8 %; HGB - HEMOGLOBIN 15.1 g/dL (14.0-18.0); LYMPHOCYTES # (AUTO) 1.7 10^3/uL (1.5-3.5); LYMPHOCYTES % (AUTO) 19.4 %; MEAN CORPUSCULAR HEMOGLOBIN 33.2 pg (27.0-31.0); MEAN CORPUSCULAR VOLUME 97.8 fL (80.0-94.0); MEAN PLATELET VOLUME 9.2 fL (7.4-11.4); MONOCYTES % (AUTO) 11.2 %; NEUTROPHILS # (AUTO) 5.8 10^3/uL (1.5-6.6); NEUTROPHILS % (AUTO) 66.1 %; PLT - PLATELET COUNT 165 10^3/uL (130-450); RED BLOOD COUNT 4.53 10^6/uL (4.70-6.10); RED CELL DISTRIBUTION WIDTH 13.1 % (12.0-15.0); WHITE BLOOD COUNT 8.9 x10^3/uL (4.8-10.8)
[2018-03-20 05:08] LABS: CALCIUM 8.4 mg/dL (8.5-10.3); CREATININE 0.8 mg/dL (0.6-1.2); MAGNESIUM 1.7 mg/dL (1.7-2.8)
[2018-03-20 05:20] LABS: ALBUMIN/GLOBULIN RATIO 1.2 (1.0-2.2); BILIRUBIN,TOTAL 1.9 mg/dL (0.2-1.0); PHOSPHORUS 2.9 mg/dL (2.5-4.6); TOTAL PROTEIN 5.5 g/dL (6.7-8.2)
[2018-03-20] MEDS: ENALAPRILAT 1.25 MG/ML VIAL IVP SCH (06:17)
[2018-03-20] MEDS: PANTOPRAZOLE 40 MG TABLET PO SCH (06:17)
[2018-03-20] MEDS: INSULIN ASPART 300 UNIT/3 ML PEN SUBQ SCH ×2 (07:58→12:00)
[2018-03-20] MEDS: PRIMIDONE 50 MG TABLET PO SCH (07:59)
[2018-03-20] MEDS: LOSARTAN 50 MG TABLET PO SCH (07:59)
[2018-03-20] MEDS: FAMOTIDINE 20 MG/50 ML 50 ML IV SCH (07:59)
[2018-03-20] MEDS: ENOXAPARIN 40 MG/0.4 ML SYRINGE SUBQ SCH (08:05)
[2018-03-20] MEDS ORDERED: hydroCHLOROthiazide 25 MG TABLET PO SCH (09:00)
--- NOTE | 2018-03-20 10:20 | XRAY Report ---
Procedure Date: 03/20/2018 Accession Number: [id number] / [id number] Procedure: XR - Abdomen Acute CPT Code: FULL RESULT: EXAM: Abdomen Acute DATE: 03/20/2018 9:57 AM CLINICAL HISTORY: SBO COMPARISON: Abdominal radiograph 03/19/[address] abdomen pelvis 03/15/2018. TECHNIQUE: 2 views abdomen and 1 view chest. FINDINGS: CHEST: Chest radiograph is stable with mild blunting of the left costophrenic angle, likely small pleural effusion. No pneumothorax. Clear lungs. Stable cardiomediastinal silhouette. ABDOMEN: Bowel Gas Pattern: Overall paucity of bowel gas, decreased compared to yesterday. Small amounts of gas in large bowel and no air-fluid levels, nonobstructive bowel gas pattern. Free Air: Persistent gross free air. Other: None. IMPRESSION: Persistent gross free air. Please correlate the persistence of gross volume of extraintestinal gas to the patient's clinical postoperative course. Nonobstructive bowel gas pattern. Small pleural effusion, unchanged. RADIA
--- NOTE | 2018-03-20 11:17 | Discharge Plan ---
Discharge Plan Disposition: Home, Self Care Condition: Stable Prescriptions: chlorproMAZINE [Thorazine] 25 mg PO TID PRN #12 tablet PRN Reason: Hiccups cloNIDine 0.2 MG PATCH [Ejjmpthn-Bia-2] 0.2 mg TOP Q7D #4 patch Diet: Cardiac Activity Restrictions: Activity as Tolerated Shower Restrictions: No Instruction Topics: ED Abdominal Pain Unkn Cause Additional Instructions or Follow Up instructions: Return anytime if he develops significant pain, or worsen and cannot keep down anything. I would eat a soft liquid diet for the next day or so and then slowly advance it back to normal foods over another day or 2. Your blood pressure was elevated today on check into the emergency department. This does not mean that you have hypertension, it is a common phenomenon to come to the emergency department and have elevated blood pressure. I recommend that you see your primary care physician within the week to have it rechecked when you are feeling better. No Smoking: If you smoke, Please STOP! Call for help.
[2018-03-20 12:52] VITALS: BP 132/70
--- NOTE | 2018-03-20 13:06 | PROVIDER PROGRESS NOTE ---
Subjective - General Admit Date: 03/15/18 Procedure Date: 03/16/18 Post Op Days: 6 Procedure Performed: s/p partial small bowel resection - Review of Systems Wound/Incisions: positive: Healing well General: positive: No symptoms Pulmonary: positive: No symptoms Cardiovascular: positive: No symptoms Gastrointestinal: positive: Flatus, Other (Bowel movement.) Psychiatric: positive: No symptoms Objective - Patient Data Reviewed Vital Signs: Yes Vital Signs: Vital Signs x48h Temp Pulse Resp BP Pulse Ox 03/20/18 12:52 36.4 C L 78 18 132/70 H 97 03/20/18 08:08 36.6 C 80 18 133/66 H 97 03/20/18 06:09 81 125/64 Intake & Output: Intake and Output Totals x24h 03/18/18 03/19/18 03/20/18 23:59 23:59 23:59 Intake Total 2100 3991.666 1618 Output Total 2600 2850 Balance -500 8672.503 1382 - Lab Results Lab Results: 03/20/18 04:30 03/20/18 04:30 Other Lab Results: Lab Results x24hrs 03/20/18 03/20/18 03/20/18 Range/Units 11:45 07:17 04:30 WBC (4.8-10.8) x10^3/uL RBC (4.70-6.10) 10^6/uL Hgb (14.0-18.0) g/dL Hct (42.0-52.0) % MCV (80.0-94.0) fL MCH (27.0-31.0) pg MCHC (32.0-36.0) g/dL RDW (12.0-15.0) % Plt Count (130-450) 10^3/uL MPV (7.4-11.4) fL Neut # (Auto) (1.5-6.6) 10^3/uL Lymph # (Auto) (1.5-3.5) 10^3/uL [place] # (Auto) (0.0-1.0) 10^3/uL Eos # (Auto) (0.0-0.7) 10^3/uL Baso # (Auto) (0.0-0.1) 10^3/uL Absolute Nucleated RBC x10^3/uL Nucleated RBC % /100WBC Sodium 135 (135-145) mmol/L Potassium 3.7 (3.5-5.0) mmol/L Chloride 104 (101-111) mmol/L Carbon Dioxide 23 (21-32) mmol/L Anion Gap 8.0 (6-13) BUN 20 (6-20) mg/dL Creatinine 0.8 (0.6-1.2) mg/dL Estimated GFR (MDRD) 91 (>89) Glucose 210 H (70-100) mg/dL POC Whole Bld Glucose 194 H 198 H (70 - 100) mg/dL Calcium 8.4 L (8.5-10.3) mg/dL Phosphorus 2.9 (2.5-4.6) mg/dL Magnesium 1.7 (1.7-2.8) mg/dL Total Bilirubin 1.9 H (0.2-1.0) mg/dL AST 31 (10-42) IU/L ALT 39 (10-60) IU/L Alkaline Phosphatase 64 (42-121) IU/L Total Protein 5.5 L (6.7-8.2) g/dL Albumin 3.0 L (3.2-5.5) g/dL Globulin 2.5 (2.1-4.2) g/dL Albumin/Globulin Ratio 1.2 (1.0-2.2) 03/20/18 03/19/18 03/19/18 Range/Units 04:30 21:11 16:50 WBC 8.9 (4.8-10.8) x10^3/uL RBC 4.53 L (4.70-6.10) 10^6/uL Hgb 15.1 (14.0-18.0) g/dL Hct 44.3 (42.0-52.0) % MCV 97.8 H (80.0-94.0) fL MCH 33.2 H (27.0-31.0) pg MCHC 34.0 (32.0-36.0) g/dL RDW 13.1 (12.0-15.0) % Plt Count 165 (130-450) 10^3/uL MPV 9.2 (7.4-11.4) fL Neut # (Auto) 5.8 (1.5-6.6) 10^3/uL Lymph # (Auto) 1.7 (1.5-3.5) 10^3/uL [place] # (Auto) 1.0 (0.0-1.0) 10^3/uL Eos # (Auto) 0.3 (0.0-0.7) 10^3/uL Baso # (Auto) 0.0 (0.0-0.1) 10^3/uL Absolute Nucleated RBC 0.00 x10^3/uL Nucleated RBC % 0.1 /100WBC Sodium (135-145) mmol/L Potassium (3.5-5.0) mmol/L Chloride (101-111) mmol/L Carbon Dioxide (21-32) mmol/L Anion Gap (6-13) BUN (6-20) mg/dL Creatinine (0.6-1.2) mg/dL Estimated GFR (MDRD) (>89) Glucose (70-100) mg/dL POC Whole Bld Glucose 200 H 179 H (70 - 100) mg/dL Calcium (8.5-10.3) mg/dL Phosphorus (2.5-4.6) mg/dL Magnesium (1.7-2.8) mg/dL Total Bilirubin (0.2-1.0) mg/dL AST (10-42) IU/L ALT (10-60) IU/L Alkaline Phosphatase (42-121) IU/L Total Protein (6.7-8.2) g/dL Albumin (3.2-5.5) g/dL Globulin (2.1-4.2) g/dL Albumin/Globulin Ratio (1.0-2.2) - Current Medications Current Medications: Current Medications Generic Name Dose Route Start Last Admin Trade Name Freq PRN Reason Stop Dose Admin Atorvastatin Calcium 10 mg 03/18/18 21:00 03/19/18 20:39 Lipitor PO 10 mg QPM BONIFACIO Administration Enoxaparin Sodium 40 mg 03/17/18 09:00 03/20/18 08:05 Lovenox SUBQ 40 mg DAILY BONIFACIO Administration Hydralazine HCl 20 mg 03/20/18 02:00 03/20/18 10:27 Apresoline Inj IVP Not Given Q8H [facility] Hydrochlorothiazide 25 mg 03/20/18 09:00 03/20/18 07:59 Hydrodiuril PO 25 mg DAILY BONIFACIO Administration Famotidine 50 mls @ 100 mls/hr 03/15/18 21:00 03/20/18 08:29 Pepcid 20 Mg/50 Ml IV Infused BID BONIFACIO Infusion Potassium Chloride/Dextrose/Sod Cl 1,000 mls @ 40 mls/hr 03/19/18 21:15 03/19 22:50 IV Not Given .Q25H BONIFACIO Insulin Aspart 1 - 5 unit 03/20/18 08:00 03/20/18 12:00 Novolog SUBQ 2 unit 0800,1200,1700,2100 BONIFACIO Administration Protocol Latanoprost 1 drops 03/16/18 21:00 03/19/18 20:39 Xalatan Ophth Drops RIGHTEYE 1 drops QPM BONIFACIO Administration Losartan Potassium 100 mg 03/19/18 09:00 03/20/18 07:59 Cozaar PO 100 mg DAILY BONIFACIO Administration Pantoprazole Sodium 40 mg 03/18/18 16:00 03/20/18 06:17 Protonix PO 40 mg BIDAC BONIFACIO Administration Primidone 100 mg 03/18/18 21:00 03/20/18 07:59 Mysoline PO 100 mg BID BONIFACIO Administration Sodium Chloride 10 ml 03/15/18 19:59 03/19/18 18:11 Normal Saline Flush 0.9% IVP 10 ml PRN PRN Administration NEEDED PER PROVIDER ORDERS Sodium Chloride 10 ml 03/16/18 01:00 03/20/18 08:05 Normal Saline Flush 0.9% IVP Not Given 0100,0900,1700 BONIFACIO Terazosin HCl 2 mg 03/18/18 21:00 03/19/18 21:03 Hytrin PO Not Given QPM BONIFACIO - Physical Exam Wound/Incisions: positive: Healing well General Appearance: positive: No acute distress Eyes Bilateral: positive: No lid inflammation, Conjunctivae nml, No scleral icterus ENT: positive: No signs of dehydration Neck: positive: Trachea midline Respiratory: positive: Chest non-tender Cardiovascular: positive: Regular rate & rhythm Rectal: positive: Tenderness (Mild incisional.) Skin: positive: Color nml Neurologic/Psychiatric: positive: Oriented x3 Impression/Plan - Problem List Problem List: Tolerating general diet with no evidence of infection. Ambulating. Pain controlled. Agree with discharge home today and have patient follow up with me in 7 days for staple removal. Contact my office for surgical concerns and/or questions. Avoid constipation.
--- NOTE | 2018-03-20 18:17 | DISCHARGE SUMMARY ---
Discharge Summary Admit Date: 03/15/18 Discharge Date: 03/20/18 Discharging Provider: Anita Farah DO Primary Care Provider: Cameron Thomas Code Status: Attempt Resuscitation Condition at Discharge: Stable Discharge Disposition: 01 Home, Self Care - DIAGNOSES Admission Diagnoses: 1. Small bowel obstruction 2. Hypokalemia 3. Hypertension 4. Hyperglycemia 5. Gastroesophageal reflux disease 6. Hyperlipidemia Discharge Diagnoses with Status of Each Condition: 1. Small bowel obstruction - The patient had a small bowel obstruction secondary to an adhesion which was lysed by Dr. Quintin Montelongo. He has been moving his bowels and eating without any difficulty and will now be discharged home. 2. Hypokalemia- The patient was hypokalemic on admission but his potassium has been corrected and is 3.7 this morning. 3. Hypertension - The patient has had significant hypertension during this hospitalization and will need to follow-up with his primary care physician next week in this regard. We will discharge him home on a clonidine patch and his previous home medications. 4. Hyperglycemia- The patient admits that he has a history of borderline diabetes but is not on any treatment at this time. The patient's blood sugar was significantly elevated on presentation at 240. Hemoglobin A1c came back at 7.4 which equates to an estimated average glucose of 166. This is something he will need to follow-up with his primary care physician with as well. 5. Gastroesophageal reflux disease- The patient has history of GERD and is on omeprazole at home. While the patient was hospitalized he was placed on IV famotidine. He will resume omeprazole on discharge. 6. Hyperlipidemia- Patient has a history of hyperlipidemia and does take statin at home. Patient will resume statin at home. - HPI History of Present Illness: Patient is a very pleasant 87-year-old gentleman with a past medical history significant for hypertension, hyperlipidemia, GERD, BPH, borderline diabetes, macular degeneration of the right eye, history of hernia repair in 1973 and history of small bowel obstruction 1 year ago for which patient required 3-4 day hospitalization in [place] who presents to the emergency department with a chief complaint of nausea and vomiting. The patient states that he was in his normal state of health until yesterday afternoon when he states he felt unwell. He states he felt as though he had eaten too much and began having bloating and abdominal distention. The patient states he did not feel nauseated at that time nor was he having abdominal pain but he was not comfortable throughout the day. The patient states that the same symptoms continued this morning and then around 5 PM he became very nauseated and had multiple episodes of emesis. The patient states after that he began having hiccups and he could not control his hiccups. The symptoms were very similar to what he had about a year ago when he was hospitalized with a bowel obstruction. The patient states that his son was visiting from [place] and convinced the patient that he needs to come to the emergency department. The patient denies any abdominal pain, fevers, chills or diarrhea. The patient states that his last bowel movement was more than a day ago. Patient denies any headaches, blurred vision, runny nose, sore throat, nasal congestion, difficulty swallowing, chest pain, shortness of air, orthopnea, PND , increased lower extremity swelling, cough, urinary urgency, urinary frequency , dysuria, joint pain, muscle aches, joint swelling, back pain, neck stiffness, recent unintentional weight loss, hair loss, skin rash, night sweats or any focal neurologic deficits. On presentation to the emergency department the patient was afebrile with heart rate of 86. The patient was very hypertensive with a blood pressure of 198/108 and was otherwise not in any respiratory distress. The patient was having continuous hiccups in the emergency department. The patient underwent routine lab tests which showed a mild leukocytosis of 11.9 and a mild hypokalemia of 3.3 with hypochloremia. The patient also was found to have a blood glucose level of 240. The patient does admit that he has borderline diabetes. The patient initially underwent an acute abdominal series and x-ray showed left abdominal soft tissue fullness suggesting abdominal situs or soft tissue mass. No bowel obstruction or free air was seen. The emergency room physician gave the patient a p.o. challenge which initially he appeared to have passed and was ready to discharge the patient however prior to discharge the patient again began having nausea and had several episodes of emesis. At this point the emergency room physician ordered a CT abdomen/pelvis with IV contrast which revealed a GI tract obstruction near the level of the duodenumjejunum junction with associated small bowel malrotation. The patient had an NG tube placed at that time which was able to suction a large amount of contents from the patient' s stomach. The emergency room physician spoke with the surgeon configuration technician Dr. Quitnin Montelongo who asked for a CT abdomen/pelvis with oral contrast placed down the NG tube. The repeat CT scan showed high-grade obstruction near the jejunumduodenum junction with concern for possible volvulus. The surgeon asked that the patient be admitted by the hospitalist service and that he would consult on the patient in the morning. He commented that the patient would likely need laparoscopic procedure in the morning. - HOSPITAL COURSE Hospital Course: The patient was admitted to medical surgical bed and general surgery was consulted. The patient was taken to the operating room and a adhesion was lysed , relieving the patient's small bowel obstruction. He continued to slowly improve and began passing gas and had a large bowel movement 2 days ago. He has been able tolerate feedings and will be discharged home today. - ALLERGIES Allergies/Adverse Reactions: Allergies Allergy/AdvReac Type Severity Reaction Status Date / Time No Known Drug Allergies Allergy Verified 02/26/17 11:07 - MEDICATIONS Home Medications: Ambulatory Orders Medication Instructions Recorded Confirmed Aspirin 325 mg PO DAILY 03/15/18 03/16/18 Latanoprost 0.005% Ophth Drops 1 drops RIGHTEYE QPM 03/15/18 03/16/18 [Xalatan Ophth Drops] Losartan/Hydrochlorothiazide 1 tab PO DAILY 03/15/18 03/16/18 [Losartan-Hctz 100-12.5 mg Tab] Omeprazole 20 mg PO BID 03/15/18 03/16/18 Primidone 100 mg PO BID 03/15/18 03/16/18 Simvastatin 20 mg PO QPM 03/15/18 03/16/18 Terazosin [Hytrin] 2 mg PO QPM 03/15/18 03/16/18 Zolpidem [Ambien] 5 mg PO QPM PRN 03/15/18 03/16/18 chlorproMAZINE [Thorazine] 25 mg PO TID PRN #12 tablet 03/15/18 cloNIDine 0.2 MG PATCH 0.2 mg TOP Q7D #4 patch 03/20/18 [[id number]] - PHYSICAL EXAM AT DISCHARGE General Appearance: positive: No acute distress, Alert Eyes Bilateral: positive: Normal inspection, PERRL, EOMI, No lid inflammation, Conjunctivae nml, No scleral icterus ENT: positive: ENT inspection nml, Pharynx nml, No signs of dehydration Neck: positive: Nml inspection, Thyroid nml, No JVD, Trachea midline. negative : Thyromegaly Respiratory: positive: Chest non-tender, No respiratory distress, Breath sounds nml. negative: Wheezes, Rales, Rhonchi Cardiovascular: positive: Regular rate & rhythm, No murmur, No gallop Peripheral Pulses: positive: 1+ Abdomen: positive: Non-tender, No organomegaly, Nml bowel sounds, No distention. negative: Guarding, Rebound Back: positive: Nml inspection. negative: CVA tenderness (R), CVA tenderness (L ) Skin: positive: Color nml, No rash, Warm, Dry. negative: Cyanosis Extremities: positive: Non-tender, Full ROM, Nml appearance Neurologic/Psychiatric: positive: Oriented x3, CN's nml (2-12), Motor nml, Sensation nml, Mood/affect nml - LABS Result Diagrams: 03/20/18 04:30 03/20/18 04:30 - FOLLOW UP Follow Up: Follow-up with Dr. Clark and your primary care physician next week. - TIME SPENT Time Spent in Discharge (Minutes): 40
[2018-03-25] MEDS ORDERED: cloNIDine 0.2 MG PATCH TOP SCH (09:00)
== END 2018-03-20 13:10 | disposition home or self-care (01) | DRG 331 ==
LOC: ED 13:17 → MS2 19:59
PROVIDERS: ADMIT Internal Medicine; ATTEND Hospitalist
PROC: 0D9670Z Drainage of Stomach with Drainage Device, Via Natural or Artificial Opening (ICD-10-PCS; 2018-03-16)
PROC: 0DBA0ZZ Excision of Jejunum, Open Approach (ICD-10-PCS; principal; 2018-03-16 08:00)
PROC: 0WJH4ZZ Inspection of Retroperitoneum, Percutaneous Endoscopic Approach (ICD-10-PCS; 2018-03-16 08:00)
DX: K56.609 Unspecified intestinal obstruction, unspecified as to partial versus complete obstruction (principal); K56.50 Intestinal adhesions [bands], unspecified as to partial versus complete obstruction; K57.10 Diverticulosis of small intestine without perforation or abscess without bleeding; E87.6 Hypokalemia; I10 Essential (primary) hypertension; E11.65 Type 2 diabetes mellitus with hyperglycemia; K21.9 Gastro-esophageal reflux disease without esophagitis; E78.5 Hyperlipidemia, unspecified; K44.9 Diaphragmatic hernia without obstruction or gangrene; N40.0 Benign prostatic hyperplasia without lower urinary tract symptoms; E87.8 Other disorders of electrolyte and fluid balance, not elsewhere classified; K57.30 Diverticulosis of large intestine without perforation or abscess without bleeding; H35.30 Unspecified macular degeneration; H40.9 Unspecified glaucoma; Z79.899 Other long term (current) drug therapy; Z87.891 Personal history of nicotine dependence; Z79.82 Long term (current) use of aspirin
CPT/HCPCS: 36415; 74022; 74176; 74177; 76000; 80053; 83036; 83605; 83690; 83735; 84100; 85025; 88307; 96372; 96374; 96375; 99284